=== PATIENT | female | born 1935 | race Caucasian/White ===

== ENCOUNTER → 2023-08-21 14:55 | Outpatient (REF) | payer MEDICARE, SELFPAY ==
[2023-08-21 19:20] LABS: % Basophils 0.6 % (0-2); % Eosinophils 3.1 % (0-6); % Immature Granulocytes 0.2 % (0-0.5); % Lymphocytes 15.1 % (20.5-51.1); Absolute Eosinophils 0.2 10^3/uL (0-0.7); Absolute Lymphocytes 0.8 10^3/uL (1.2-3.4); Absolute Monocytes 0.5 10^3/uL (0.1-0.6); Absolute Neutrophils 3.7 10^3/uL (1.4-6.5); Hematocrit 34.5 % (37.0-47.0); Hemoglobin 10.9 g/dL (12.0-16.0); Mean Corp Hgb Conc. 31.6 g/dL (33.0-37.0); Mean Corpuscular Hgb 32.2 pg (27.0-31.0); Mean Corpuscular Volume 102.1 fL (81.0-99.0); Mean Platelet Volume 9.7 fL (7.4-10.4); Nucleated Red Blood Cells % 0 %; Platelet Count 180 10^3/uL (130-400); Red Blood Cell Count 3.38 10^6/uL (4.20-5.40); Red Cell Dist. Width 13.6 % (11.5-14.5); White Blood Cell Count 5.2 10^3/uL (4.8-10.8)
[2023-08-21 19:29] LABS: Blood Urea Nitrogen 18 mg/dl (7-17); Calcium 9.4 mg/dl (8.4-10.2); Carbon Dioxide 30 mmol/L (22-30); Chloride 100 mmol/L (98-107); Glucose 89 mg/dl (70-99); Sodium 139 mmol/L (135-145); eGFR 48.94
== END ==
LOC: CLAB 14:55
PROVIDERS: ATTENDING PHYSICIAN Internal Medicine Cardiovascular Disease; FAMILY PHYSICIAN Internal Medicine; OTHER PHYSICIAN Internal Medicine Cardiovascular Disease
DX: I50.9 Heart failure, unspecified (principal)
CPT/HCPCS: 36415; 80048; 85025

== ENCOUNTER → 2023-08-23 13:28 | Outpatient (REF) | payer MEDICARE, SELFPAY | LOC: RAD 13:28 | PROVIDERS: ATTENDING PHYSICIAN Nurse Practitioner Family | DX: M54.50 Low back pain, unspecified (principal) | CPT/HCPCS: 72110 ==

== ENCOUNTER → 2023-09-16 07:10 | Outpatient (REF) | payer MEDICARE, SELFPAY | LOC: RAD 07:10 | PROVIDERS: ATTENDING PHYSICIAN Internal Medicine | DX: I60.9 Nontraumatic subarachnoid hemorrhage, unspecified (principal) | CPT/HCPCS: 70450 ==

== ENCOUNTER → 2023-09-27 15:44 | Outpatient (REF) | payer MEDICARE, SELFPAY | LOC: RAD 15:44 | PROVIDERS: ATTENDING PHYSICIAN Internal Medicine | DX: M79.602 Pain in left arm (principal) | CPT/HCPCS: 73060 ==

== ENCOUNTER → 2023-10-18 15:50 | Outpatient (REF) | payer MEDICARE, SELFPAY | LOC: RAD 15:50 | PROVIDERS: ATTENDING PHYSICIAN Internal Medicine | DX: E04.1 Nontoxic single thyroid nodule (principal) | CPT/HCPCS: 76536 ==

== ENCOUNTER 2023-12-30 15:23 | Emergency (ER) | payer MEDICARE, SELFPAY ==
[2023-12-30 15:31] VITALS: BP 142/73
--- NOTE | 2023-12-30 17:26 | ED.GENMED ---
History of Present Illness
General
Chief Complaint: Head Injury
Source: patient and family
Time Seen by Provider: 12/30/23 17:17
History of Present Illness
History of Present Illness:
88-year-old female was walking with her walker while trying to carry a cup of water. She states that she suspects that she was not able to lift the walker and it caught on the edge of the threshold. She then fell down and suspect she hit the top
of her head on a door jam. Patient did not even realize she hit her head to later small hematoma on the top of her head. She called her PCP who advised her to come the emergency department. Patient denies any symptoms. No headache or vision
change. No motor weakness.
Past History
Past History
ED Past Medical History: Arrthythmia (Atrial fibrillation), CAD, CHF, COPD, CVA (Right sided weakness), GERD (Fink's esophagus, hiatal hernia), HTN, Hypercholesterolemia, Valvular disease (aortic stenosis, rheumatic heart disease) and Other
(Chronic UTI, renal cyst, Vertigo, PE, Sleep apnea, Rheumatic heart disease, Diverticulitis,Hiatal hernia, IBS, Ulcers, UTi, )
ED Past Surgical History: Cholecystectomy, Orthopedic (Left knee, Left shoulder surgery) and Tonsilectomy
Social History
Tobacco: Non-smoker
Alcohol: None
Drug: None
Personal:
Living: with family
Employment: Retired
Family History
Family History: Other (Stroke and cancer)
Phy Exam
Physical Exam
Physical Exam:
CONSTITUTIONAL Patient alert and oriented to person, place and time. Well-appearing. Vital signs reviewed.
HEAD small hematoma to the top of the skin
EYES eyelids normal to inspection, Extraocular muscles intact, Conjunctiva normal, Sclera normal.
NECK normal range of motion, Trachea midline, no jugular venous distention.
RESPIRATORY CHEST No respiratory distress noted, Chest expansion equal
BACK normal inspection, kyphotic, no midline tenderness
UPPER EXTREMITY range of motion normal, Motor strength normal, no cyanosis, no edema.
LOWER EXTREMITY range of motion normal, Motor strength normal, no cyanosis, no edema.
NEURO Speech normal, No focal motor deficits, Bina coma scale 15, Memory normal, Cranial Nerves intact to screening exam. No pronator drift
SKIN skin warm, dry, and normal in color.
PSYCHIATRIC patient oriented to person place and time, Normal affect.
Course
Orders/Labs/Results
Orders:
Orders
12/30/23 15:38
CT Head W/o Iv Contrast Urgent
Comment:
Reason For Exam: head injury on Eliquis
Vital Signs
Initial and Last Documented VS:
Initial Vital Signs
Temp Pulse Resp BP Pulse Ox
98.4 F 71 16 142/73 97
12/30/23 15:31 12/30/23 15:31 12/30/23 15:31 12/30/23 15:31 12/30/23 15:31
Last Documented Vital Signs
Temp Pulse Resp BP Pulse Ox
98.4 F 71 16 142/73 97
12/30/23 15:31 12/30/23 15:31 12/30/23 15:31 12/30/23 15:31 12/30/23 15:31
MDM/Problems Addressed
MDM/Problems Addressed:
Head injury
*Radiology
Radiology exam reviewed: radiology read reviewed
*Pulse Oximetry
Patient hypoxic: no
*Critical Care Note
Total Time (30-74mins, 75-104mins- exclusive of procedures): Not Applicable
Data Reviewed
Source: patient and family
Prescriptions/Medications Considered But Not Given:
Considered Kcentra but no evidence of intracranial hemorrhage
Patient Management
Escalation/DeEscalation of care consider admission/obs:
Normal exam. CT negative. Okay for discharge
ED Attending Note
-
Portions of this chart may have been created with voice recognition software.� Occasional wrong word or��sound alike� substitutions may have occurred due to the inherent limitations of voice recognition software.
Discharge Plan
Departure
Patient Disposition: Home (Routine Discharge)
Date of Disposition: 12/30/23
Time of Disposition: 17:27
Patient with high blood pressure during this ER visit?: Yes
Discharge Problem:
Head injury
Instructions: Head Injury in Adults (DC), Contusion (DC), BLOOD PRESSURE
Prescriptions:
No Action
Eliquis 2.5 MG tablet
2.5 mg PO BID 0RF
L.acidoph, paracasei,B. lactis 1 EACH capsule
1 ea PO DAILY@1200
cholecalciferol (vitamin D3) 50 MCG tablet,chewable
2,000 unit PO DAILY@1200
carvedilol 6.25 mg Tablet
6.25 mg PO BID Qty: 60 0RF
cephalexin 250 mg Capsule
250 mg PO QPM 30 Days Qty: 30 0RF
acetaminophen 500 mg Tablet
1,000 mg PO Q6H PRN (Reason: pain)
potassium chloride 10 mEq Tablet,Er Particles/Crystals
10 meq PO DAILY 30 Days Qty: 30 0RF
Entresto 24-26 mg Tablet
1 tab PO BID 30 Days Qty: 60 0RF
furosemide [Lasix] 40 mg tablet
40 mg PO DAILY Qty: 30 0RF
atorvastatin 10 mg Tablet
10 mg PO QPM 30 Days Qty: 30 0RF
amiodarone [Pacerone] 200 mg tablet
200 mg PO QPM
famotidine 10 mg Tablet
10 mg PO HS
diclofenac sodium 0.1 % Drops
1 drp OPHTHALMIC (EYE) BID
prednisolone acetate (PF) 1 % Drops,Suspension
1 drp OPHTHALMIC (EYE) BID
Activity Restrictions/Additional Instructions:
Return immediately for changes in mentation, weakness any kind, vision changes, vomiting, headache or any other concerns.
Interventions
Interventions:
*ED COVID-19 Vaccine History Last Done: 12/30/23 15:31
Discharge Date and Time
Print Language: CAMEROONIAN
[2023-12-30 17:46] VITALS: BP 138/60
== END 2023-12-30 17:56 | disposition home or self-care (01) ==
LOC: EMR 15:23
PROVIDERS: EMERGENCY PHYSICIAN Emergency Medicine; FAMILY PHYSICIAN Internal Medicine
DX: S09.90XA Unspecified injury of head, initial encounter (principal); W19.XXXA Unspecified fall, initial encounter; Y93.01 Activity, walking, marching and hiking; I48.91 Unspecified atrial fibrillation; I25.10 Atherosclerotic heart disease of native coronary artery without angina pectoris; I11.0 Hypertensive heart disease with heart failure; I50.9 Heart failure, unspecified; K21.9 Gastro-esophageal reflux disease without esophagitis; E78.00 Pure hypercholesterolemia, unspecified; G47.30 Sleep apnea, unspecified; J44.9 Chronic obstructive pulmonary disease, unspecified; K58.9 Irritable bowel syndrome, unspecified; Z79.01 Long term (current) use of anticoagulants; Z82.3 Family history of stroke; Z86.73 Personal history of transient ischemic attack (TIA), and cerebral infarction without residual deficits; Z87.19 Personal history of other diseases of the digestive system; Z87.440 Personal history of urinary (tract) infections; Z90.49 Acquired absence of other specified parts of digestive tract
CPT/HCPCS: 99284; 70450

== ENCOUNTER 2024-05-04 13:47 | Inpatient (IN) | payer MEDICARE, SELFPAY ==
[2024-05-02 21:50] VITALS: BP 140/66
[2024-05-02 21:59] VITALS: BP 140/62; BMI 23.3
--- NOTE | 2024-05-02 22:28 | ED.GENMED ---
History of Present Illness
<Liz Baez MD, Resident - Last Filed: 05/03/24 02:03>
General
Chief Complaint: Dizziness
Source: patient
Exam Limitations: none
Time Seen by Provider: 05/02/24 21:55
Nursing documentation reviewed up to this point in time: agreed with
Travel History
Have you traveled to any high risk areas for coronavirus over the past 14 days?: No
Have you had any contact with someone who has COVID-19?: No
Do you have any symptoms of coronavirus? Fever > 100 degrees, chills, cough, shortness of breath, sore throat, loss of taste or smell, muscle aches, or headache?: No
History of Present Illness
History of Present Illness:
88-year-old female with PMHx significant for cardiomyopathy, rheumatic heart disease, aortic stenosis, PE, A-fib, s/p pacemaker placement, diverticulosis, CVA presents to the hospital for evaluation of sensation of falling. Patient states that she
drank tea, went into the room and then started feeling heavy in her head, and that sensation radiated down into her neck bilaterally into her supraclavicular area and then she had a sensation of passing out. She could not differentiate if it is a
sensation of things spinning around her and the room but states that turning her head or standing up from the chair makes her more dizzy. She has a sensation of palpitations and chest heaviness but could not associated with her dizziness. She
answers with - 'I do not know' if her chest symptoms and dizziness occurs together, but is oriented to person place and time. She had 2 similar episodes in the last 4 weeks, was taken to primary care, who referred her to vestibular therapy.
Patient has a vestibular therapy appointment scheduled for next week. She is weak in her right lower extremity from her previous stroke but denies having any other focal weakness, change in sensations, chest pain, SOB, orthopnea, PND, bowel and
bladder incontinence, loss of consciousness, or recent falls. Patient ambulates with walker at home, and denies falling recently. Patient is on Eliquis 2.5 mg twice daily and did not miss taking any Eliquis dosing.
If applicable-neuro sx onset
Onset of symptoms known: No
Time pt last seen normal is known: No
Past History
<Liz Baez MD, Resident - Last Filed: 05/03/24 02:03>
Past History
ED Past Medical History: Arrthythmia (Atrial fibrillation), CAD, CHF, COPD, CVA (Right sided weakness), GERD (Fink's esophagus, hiatal hernia), HTN, Hypercholesterolemia, Valvular disease (aortic stenosis, rheumatic heart disease) and Other
(Chronic UTI, renal cyst, Vertigo, PE, Sleep apnea, Rheumatic heart disease, Diverticulitis,Hiatal hernia, IBS, Ulcers, UTi, )
ED Past Surgical History: Cholecystectomy, Orthopedic (Left knee, Left shoulder surgery) and Tonsilectomy
Social History
Tobacco: Non-smoker
Alcohol: None
Drug: None
Personal:
Living: with family
Employment: Retired
Family History
Family History: Other (Stroke and cancer)
Review of Systems
<Liz Baez MD, Resident - Last Filed: 05/03/24 02:03>
Review of Systems
Allergies reviewed?: No
Other source history: family
Constitutional: Reports fever
EENT: Reports no symptoms
Respiratory: Reports no symptoms
Cardiac: Reports chest pain and palpitations
ABD/GI: Reports no symptoms
: Reports no symptoms
Musculoskeletal: Reports edema
Skin: Reports other (bruises)
Neurological: Reports dizzy and headache
Hematologic/Lymphatic: Reports no symptoms
Psychiatric: Reports no symptoms
Phy Exam
<Liz Baez MD, Resident - Last Filed: 05/03/24 02:03>
General Physical Exam
General Presentation: well appearing and no apparent distress
General Skin: warm
General Habitus: elderly
General Mental: alert
General Hydration: appears well hydrated
ENT Exam
ENT Exam: EOMI and TM's normal
Cardiovascular Exam
Cardiovascular Exam: regular rate/rhythm, no gallop, no murmur and normal peripheral pulses (left >right, 2 + dorsalis pedis, equal radial pulses)
Systolic Murmur: 3/6
Heart Sounds: distant
SALLY Score
Is patient's age greater than or equal to 65 years: Yes
Does patient have 3 or more CAD risk factors?: Yes
Does patient have known CAD: No
Has patient used ASA in past seven days?: No
Has patient had severe angina in past 24 hrs?: No
Pulmonary Exam
Pulmonary Exam: lungs clear, no respiratory distress, no rales, no crackles and no rhonchi
Gastrointestinal Exam
Gastrointestinal Exam: normal bowel sounds, non tender, soft, no pulsatile mass and non distended
Neurological Exam
Neurological Exam: alert, oriented x3, CN II-XII intact, speech normal and cerebellum intact
NIH Stroke Score
Level of Consciousness: 0 - Alert
LOC questions: 0-Answers both correctly
LOC Commands: 0-Performs both correctly
Best Gaze: 0-Normal
Visual Garcia: 0=Normal, no visual loss
Facial palsy: 0=Normal, symmetrical
Motor - Right Arm: 0=No drift 10 seconds
Motor - Left Arm: 0=No drift 10 seconds
Motor - Right Le-No drift 5 seconds
Motor - Left Le-No drift 5 seconds
Limb Ataxia: 0-Absent
Sensation: 0-Normal
Best Language: 0-No aphasia
Dysarthria: 0-Normal
Extinction and Inattention: 0-No abnormality
Total Score:: 0
Motor
Seizure Activity: none
Gait: other (Not tested.)
Tremors: senile
Other Movement Disorders: none
Right upper extremity: 5
Right lower extremity: 4
Left upper extremity: 5
Left lower extremity: 5
Sensory
Sensory Exam: intact
Cerebellar
Cerebellar Function: normal finger to nose and normal heel to dan
Reflexes
Reflexes: +2: Left patellar and +2: Right patellar
Babinski: normal: Bilateral
Musculoskeletal Exam
Musculoskeletal Exam: edema (1+ pitting edema) and other (ROM limited in b/l hips)
Skin Exam
Skin Exam: other (surface bruising secondary to eliquis)
<Lili Green, DO - Last Filed: 05/03/24 01:07>
NIH Stroke Score
Total Score:: 0
Course
<Liz Baez MD, Resident - Last Filed: 05/03/24 02:03>
Orders/Labs/Results
Orders:
Orders
05/02/24 22:53
Electrocardiogram (*1) Urgent
Reason for Study: Vertigo / Dizzy
EKG- Treatment ONCE
05/02/24 22:54
Meclizine [Antivert] 25 mg PO NOW STA
05/02/24 23:07
Complete Blood Count/With Diff Urgent
Comprehensive Metabolic Panel Urgent
NT-proBNP Urgent
Troponin I Urgent
05/03/24 00:00
CT Head W/o Iv Contrast Urgent
Reason For Exam: severe dizziness
05/03/24 01:09
Meclizine [Antivert] 25 mg PO NOW STA
Abnormal Lab Results
05/02/24
23:07
WBC 3.8 L 10^3/uL
(4.8-10.8)
RBC 3.35 L 10^6/uL
(4.20-5.40)
Hgb 10.9 L g/dL
(12.0-16.0)
Hct 33.1 L %
(37.0-47.0)
MCH 32.5 H pg
(27.0-31.0)
MCHC 32.9 L g/dL
(33.0-37.0)
Absolute Lymphs (auto) 1.0 L 10^3/uL
(1.2-3.4)
Monocytes % 13.0 H %
(1.7-9.3)
BUN 24 H mg/dl
(7-17)
Creatinine 1.4 H mg/dL
(0.6-1.0)
Glucose 124 H mg/dl
(70-99)
Total Protein 6.2 L g/dl
(6.3-8.2)
05/02/24 23:07
05/02/24 23:07
Vital Signs
Initial and Last Documented VS:
Initial Vital Signs
Pulse Resp BP Pulse Ox
78 24 140/66 100
05/02/24 21:50 05/02/24 21:50 05/02/24 21:50 05/02/24 21:50
Last Documented Vital Signs
Temp Pulse Resp BP Pulse Ox
96.8 F L 83 16 118/56 98
05/02/24 21:59 05/03/24 00:30 05/03/24 00:30 05/03/24 00:00 05/03/24 00:15
<Lili Green, DO - Last Filed: 05/03/24 01:07>
Orders/Labs/Results
Orders:
Orders
05/02/24 22:53
Electrocardiogram (*1) Urgent
Reason for Study: Vertigo / Dizzy
EKG- Treatment ONCE
05/02/24 22:54
Meclizine [Antivert] 25 mg PO NOW STA
05/02/24 23:07
Complete Blood Count/With Diff Urgent
Comprehensive Metabolic Panel Urgent
NT-proBNP Urgent
Troponin I Urgent
05/03/24 00:00
CT Head W/o Iv Contrast Urgent
Reason For Exam: severe dizziness
05/03/24 01:09
Meclizine [Antivert] 25 mg PO NOW STA
Abnormal Lab Results
05/02/24
23:07
WBC 3.8 L 10^3/uL
(4.8-10.8)
RBC 3.35 L 10^6/uL
(4.20-5.40)
Hgb 10.9 L g/dL
(12.0-16.0)
Hct 33.1 L %
(37.0-47.0)
MCH 32.5 H pg
(27.0-31.0)
MCHC 32.9 L g/dL
(33.0-37.0)
Absolute Lymphs (auto) 1.0 L 10^3/uL
(1.2-3.4)
Monocytes % 13.0 H %
(1.7-9.3)
BUN 24 H mg/dl
(7-17)
Creatinine 1.4 H mg/dL
(0.6-1.0)
Glucose 124 H mg/dl
(70-99)
Total Protein 6.2 L g/dl
(6.3-8.2)
05/02/24 23:07
05/02/24 23:07
Vital Signs
Initial and Last Documented VS:
Initial Vital Signs
Pulse Resp BP Pulse Ox
78 24 140/66 100
05/02/24 21:50 05/02/24 21:50 05/02/24 21:50 05/02/24 21:50
Last Documented Vital Signs
Temp Pulse Resp BP Pulse Ox
96.8 F L 83 16 118/56 98
05/02/24 21:59 05/03/24 00:30 05/03/24 00:30 05/03/24 00:00 05/03/24 00:15
<Liz Baez MD, Resident - Last Filed: 05/03/24 02:03>
MDM/Problems Addressed
Differential Diagnosis Includes:
BPPV, vertebrobasilar insufficiency, carotid stenosis, acute CVA, acute hemorrhage.
MDM/Problems Addressed:
CT head negative.
Antivert x 2-did not improve symptoms for the patient.
Intractable vertigo.
<Liz Baez MD, Resident - Last Filed: 05/03/24 02:03>
*Radiology
Radiology exam reviewed: preliminary read by ED provider and radiology read reviewed
*Pulse Oximetry
Patient hypoxic: no
*EKG
Interpreted by ED Provider?: Yes
EKG Intrepretation Date: 05/02/24
EKG Intrepretation Time: 22:53
Interpretation: abnormal
Comparison EKG: changes noted
Rate: normal
Rhythm: PVC's
[place]: indeterminate
QRS Pattern: right bundle branch block and other (Wide QRS complexes)
*[employer] Interpretation
Rate: normal
Interpretation: normal
Rhythm: ventricular paced
*Critical Care Note
Total Time (30-74mins, 75-104mins- exclusive of procedures): Not Applicable
<Liz Baez MD, Resident - Last Filed: 05/03/24 02:03>
Update Note
Update Note:
Patient continues to have vertigo, failed get up and go test after 2 doses of Antivert.
Plan to admit patient.
ED Attending Note
<Liz Baez MD, Resident - Last Filed: 05/03/24 02:03>
-
Portions of this chart may have been created with voice recognition software.� Occasional wrong word or��sound alike� substitutions may have occurred due to the inherent limitations of voice recognition software.
<Lili Green DO - Last Filed: 05/03/24 01:07>
ED Attending Note
Patient seen and examined by attending physician: Yes
I performed a history and physical exam of patient and discussed management with resident, I reviewed resident's note and agree with documented findings and plan of care.: Yes
ED Attending Note:
This is an 88-year-old woman who has history of A-fib, chronically maintained on Eliquis, history of aortic stenosis, mitral regurgitation, CHF, CVA, pacemaker.
She complains of intermittent positional dizziness that began 4 weeks ago. Dizziness is worse with rotation of her head and much worse when lying down supine. Accompanied with nausea without vomiting. Sporadic episodes over the past 4 weeks and
has been evaluated by her PCP, was ordered to start physical therapy/vestibular training with initial appointment scheduled for next week.
She complains of abrupt onset of dizziness that began tonight, much worse than previous sporadic episodes throughout the month. She does admit to a sense of some pressure in her head but no nasal congestion, no fever, she has not had a fall, no
lightheadedness. She has had sporadic chest discomfort, not associated with intermittent dizziness. She denies shortness of breath nor cough. No change in weight, no leg pain or swelling.
88-year-old woman appears her stated age, sitting upright on stretcher, resistant to change position but otherwise appears in no acute distress.
HEENT: Pupils are equal reactive, extraocular muscles intact. No nystagmus. Test of skew is negative. Patient poorly cooperative with head impulse testing with significant dizziness with minimal rotation of head bilaterally.
Overall appears euvolemic.
Heart is regular rate and rhythm.
Lungs are clear to auscultation. No respiratory distress.
Concern for peripheral positional vertigo versus central vertigo/vertebrobasilar insufficiency. Less likely arrhythmia, orthostasis.
She has had sporadic chest pain which does not appear to be associated with her dizziness and without accompanying shortness of breath. She does have history of aortic stenosis, must consider progression of /symptomatic . Concern for ACS.
Will check labs, CT of the head, EKG. Continue registered nurse cardiac telemetry.
Will trial a dose of meclizine.
05/03/2024 0104 AM
EKG shows ventricular paced rhythm.
Labs show very mild neutropenia, mild anemia, overall similar and unchanged from previous.
Mildly elevated creatinine, similar to previous. BNP is elevated at 2300 but overall similar and unchanged from previous.
Troponin is negative.
CT of the head shows no acute findings, similar and unchanged from previous December of this year.
Thus far perhaps minimal improvement in positional vertigo after 1 dose of Antivert. Will trial another dose and continue to observe. If significant vertigo persists patient will require acute hospitalization, concern for posterior circulation
stroke.
Discharge Plan
Departure
Patient Disposition: Admit
Date of Disposition: 05/03/24
Time of Disposition: 02:01
Admit to doctor: Rubina Hurd MD
Presentation/result/management discussed w/ accepting MD/DO: Hospitalist
Discharge Problem:
intractable vertigo
Prescriptions:
No Action
Eliquis 2.5 MG tablet
2.5 mg PO BID 0RF
L.acidoph, paracasei,B. lactis 1 EACH capsule
1 ea PO DAILY@1200
cholecalciferol (vitamin D3) 50 MCG tablet,chewable
2,000 unit PO DAILY@1200
cephalexin 250 mg Capsule
250 mg PO QPM 30 Days Qty: 30 0RF
acetaminophen 500 mg Tablet
1,000 mg PO Q6H PRN (Reason: pain)
potassium chloride 10 mEq Tablet,Er Particles/Crystals
10 meq PO DAILY 30 Days Qty: 30 0RF
Entresto 24-26 mg Tablet
1 tab PO BID 30 Days Qty: 60 0RF
furosemide [Lasix] 40 mg tablet
40 mg PO DAILY Qty: 30 0RF
atorvastatin 10 mg Tablet
10 mg PO QPM 30 Days Qty: 30 0RF
amiodarone [Pacerone] 200 mg tablet
100 mg PO QPM
famotidine 10 mg Tablet
10 mg PO HS
omeprazole 20 mg Capsule,Delayed Release(Dr/Ec)
20 mg PO QPM PRN (Reason: upset stomach)
carvedilol 6.25 mg tablet
3.125 mg PO BID
Referrals:
Moises Ventura DO [Family Provider] -
Interventions
Interventions:
*Risk Screen - Suicide Last Done: 05/02/24 21:50
*General Assessment Last Done: 05/02/24 22:17
*Neglect/Abuse Screening Last Done: 05/02/24 21:50
ED- Fall Risk Assessment Last Done: 05/02/24 22:17
*ED COVID-19 Vaccine History Last Done: 05/02/24 22:17
ED- Neurological Assessment Last Done: 05/02/24 22:17
ED- Cardiac Assessment Last Done: 05/02/24 22:17
ED Swallowing Screen Last Done: 05/02/24 23:10
Discharge Date and Time
Print Language: MACEDONIAN
[2024-05-02 22:32] VITALS: BP 114/62
[2024-05-02 23:00] VITALS: BP 128/56
[2024-05-02] MEDS: ANTIVERT 25 MG PO (23:16)
[2024-05-02 23:17] LABS: % Basophils 0.8 % (0-2); % Eosinophils 2.1 % (0-6); % Immature Granulocytes 0.3 % (0-0.5); % Lymphocytes 25.7 % (20.5-51.1); % Neutrophils 58.1 % (42.2-75.2); Absolute Eosinophils 0.1 10^3/uL (0-0.7); Absolute Monocytes 0.5 10^3/uL (0.1-0.6); Absolute Neutrophils 2.2 10^3/uL (1.4-6.5); Hematocrit 33.1 % (37.0-47.0); Hemoglobin 10.9 g/dL (12.0-16.0); Mean Corp Hgb Conc. 32.9 g/dL (33.0-37.0); Mean Corpuscular Hgb 32.5 pg (27.0-31.0); Mean Corpuscular Volume 98.8 fL (81.0-99.0); Mean Platelet Volume 8.6 fL (7.4-10.4); Nucleated Red Blood Cells % 0 %; Platelet Count 146 10^3/uL (130-400); Red Blood Cell Count 3.35 10^6/uL (4.20-5.40); Red Cell Dist. Width 12.9 % (11.5-14.5); White Blood Cell Count 3.8 10^3/uL (4.8-10.8)
[2024-05-02 23:34] LABS: ALT (SGPT) 16 U/L (0-35); AST (SGOT) 30 U/L (14-36); Albumin 3.8 g/dl (3.5-5.0); Alkaline Phosphatase 108 U/L (38-126); Blood Urea Nitrogen 24 mg/dl (7-17); Calcium 9.3 mg/dl (8.4-10.2); Carbon Dioxide 29 mmol/L (22-30); Chloride 103 mmol/L (98-107); Estimated Creatinine Clearance 19 ml/min; Glucose 124 mg/dl (70-99); Potassium 3.9 mmol/L (3.5-5.1); Sodium 139 mmol/L (135-145); Total Bilirubin 0.4 mg/dl (0.2-1.3); Total Protein 6.2 g/dl (6.3-8.2); eGFR 36.41
[2024-05-02 23:40] LABS: NT-proBNP 2330 pg/ml; Troponin I 0.015 ng/ml
[2024-05-03] VITALS (14 sets, daily range): BP systolic 89–133; BP diastolic 47–71; PULSE 72–79; BMI 28.0
[2024-05-03] MEDS: ANTIVERT 25 MG PO (01:36)
--- NOTE | 2024-05-03 02:30 | HPS.HSE ---
Family Physician
-
Family Physician: Moises Ventura
Chief Complaint
-
Dizziness
History of Present Illness
88-year-old female was past medical history of cardiomyopathy, depressed EF of around 30%, rheumatic mitral valve disease, aortic stenosis, permanent atrial fibrillation status post pacemaker, CVA, chronic subdural hemorrhage coming into the
emergency department for complaints of ongoing dizziness that appeared persistent today.
Patient reports that symptoms began about a month ago. She was having vaginal symptoms and was actually seen by her PMD. She was referred to vestibular testing which is pending in about 1-1/2 weeks. She seemed to have intermittent episodes and
having. Is that she is symptom-free. She states this is associated with weakness but she has been ambulating well with her walker. Today she reports arose all usual state of health without symptoms. Then in the evening after having some tea and
going to rest she woke up with some neck discomfort and then dizziness. She reported dizziness 2 times of sensations. She perceives attempts to keep moving even though she is not moving. She also reports feeling like she is going to pass out and
that her head is AV. She reports that the sensation is triggered when she extends her neck. It is also triggered when she rotates her head to either side but much more towards the left side. She denies double vision or blurry vision with these
episodes. She denies and vomiting. But she does have nausea with the episode. She reports having nausea at the moment. She denies any chest pain or shortness of breath. She reports some palpitations. She denies any actual syncopal episodes or
recent falls.
Patient has no recent episodes of diarrhea, melena, hematochezia, vomiting or loss of appetite. Family reports has been tolerating p.o. very well. Has been no acute changes in the medications. She has no recent cough fevers or chills. She denies
any urinary symptoms
In the emergency department the patient was afebrile with a temp of 96.8, blood pressure was 120/56 and she was satting 98%. ECG showed a paced rhythm at [address] No acute ST changes.
The head CT shows no acute findings. CBC was stable and no change from prior. Chemistries showed no acute abnormalities with a BUN of 24 and creatinine of 1.4.
Patient was given 2 doses of meclizine in the ED but ultimately she still remains symptomatic.
Medical History
Past Medical History
Past Medical History: Reports Arrhythmia (Pulmonary atrial fibrillation status post pacemaker placement, paced rhythm), CHF (Cardiomyopathy, EF 30%), COPD, CVA and Valvular Disease (Aortic stenosis, mitral regurgitation)
Past Surgical History: Reports Cholecystectomy and Orthopedic
Social History
Tobacco: Non-smoker
Alcohol: None
Drug: None
Personal: Single
Living: With Family
Employment: Retired
Family History
Family History: Not pertinent
Allergies / Home Medications
Allergies reflects when Allergies were last updated in [facility].
Home Medications with original date entered in [facility]
Allergy/Medication List:
Allergies
Allergy/AdvReac Type Severity Reaction Status Date / Time
adhesive tape Allergy skin tears Verified 05/02/24 21:54
azithromycin [From Zithromax] Allergy Severe Verified 05/02/24 21:54
Nausea
levofloxacin [From Levaquin] Allergy Severe Verified 05/02/24 21:54
Nausea
oxycodone Allergy Hallucinati Verified 05/02/24 21:54
ons
Home Medications
apixaban 2.5 mg tablet (Eliquis) 2.5 mg PO BID 10/18/17
L.acidoph, paracasei,B. lactis 10 billion cell capsule 1 ea PO DAILY@1200 Supplement 11/10/17
cholecalciferol (vitamin D3) 50 mcg (2,000 unit) chewable tablet 2,000 unit PO DAILY@1200 Supplement 12/17/19
cephalexin 250 mg capsule 250 mg PO QPM 30 days #30 caps 01/27/22
acetaminophen 500 mg tablet 1,000 mg PO Q6H PRN pain 02/26/22
atorvastatin 10 mg tablet 10 mg PO QPM High cholesterol 30 days #30 tabs 03/09/22
furosemide 40 mg tablet (Lasix) 40 mg PO DAILY #30 tabs 03/09/22
potassium chloride 10 mEq tablet,extended release(part/cryst) 10 meq PO DAILY 30 days #30 tabs 03/09/22
sacubitril 24 mg-valsartan 26 mg tablet (Entresto) 1 tab PO BID 30 days #60 tabs 03/09/22
amiodarone 200 mg tablet (Pacerone) 100 mg PO QPM 01/24/23
famotidine 10 mg tablet 10 mg PO HS 01/24/23
carvedilol 6.25 mg tablet 3.125 mg PO BID heart rate 05/02/24
omeprazole 20 mg capsule,delayed release 20 mg PO QPM PRN upset stomach 05/02/24
Review of Systems
-
History Source: Patient
Constitutional: Reports No Symptoms
EENT: Reports No Symptoms
Respiratory: Reports No Symptoms
Cardiac: Reports No Symptoms
Abdomen/GI: Reports No Symptoms
: Reports No Symptoms
Musculoskeletal: Reports No Symptoms
Skin: Reports No Symptoms
Neurological: Reports Dizzy and Weakness
Endocrine: Reports No Symptoms
Hematologic/Lymphatic: Reports No Symptoms
Psych: Reports No Symptoms
Physical Exam
Vital Signs
Vital Signs
Temp Pulse Resp BP Pulse Ox
96.8 F L 83 16 118/56 98
05/02/24 21:59 05/03/24 00:30 05/03/24 00:30 05/03/24 00:00 05/03/24 00:15
Physical Exam
General: Well Nourished and Good Appetite
HEENT: NormoCephalic, Anicteric, Moist mucous membranes, Atraumatic, PERRLA, [place] Conjunctivae, No Ptosis and Neck Nontender
Respiratory: Clear
Cardiac: S1/S2, Regular Rhythm and Murmur (systolic 3/4 at rusb)
Breast: Deferred by me
GI: Soft and Normal Bowel Sounds
Rectal: Deferred by Provider
Genito-urinary: Deferred by me
Musculoskeletal: No Clubbing, No Cyanosis and No Edema
Skin: Warm
Neuro: AO x 3 and Nonfocal/grossly intact
Hematologic/Lymphatic: No Lymphadenopathy
Psych: Calm
Laboratory Results
-
05/02/24 23:07
05/02/24 23:07
Laboratory Results
Total Bilirubin 0.4 mg/dl (0.2-1.3) 05/02/24 23:07
AST 30 U/L (14-36) 05/02/24 23:07
ALT 16 U/L (0-35) 05/02/24 23:07
Alkaline Phosphatase 108 U/L (38-126) 05/02/24 23:07
Troponin I 0.015 ng/ml 05/02/24 23:07
Data Reviewed
-
CT Scan: Report Reviewed by me
Medical Tests (Nuc Med, Echo, EKG etc): Image Personally Visualized and interpreted
Lab Data: Labs Reviewed by me
Old Records: Reviewed
Impression/Plan
-
IMPRESSION:
88 female with , MR, cardiomyopathy, HFrEF - EF 30%, CVA, A fib on Eliquis, chronic subdural/ subarachnoid hemorrhage comes in with subacute dizziness episodes for a month but appeared to have a more persistent episode since dinner. Reports dizzy
with turning head (worse towards left) horizontal or neck extension or standing. Describes the sensation as feeling she would pass out. No trauma. Denies chest pain, sob. Intermittent palpitations. No signs of acute infection. Could not
ambulate due to the persistent symptom when trying to move despite meclizine x 2. No tinnitus. Chronic moderate hearing loss. Exam shows no focal neurological deficit. Was not able to elicit nystagmus on horizontal or vertical saccades. CT head
unremarkable. ECG, cbc, lytes, bun, cr unchanged from prior with paced rhythm.
PLAN:
1. Dizziness - Related to head position changes horizontally and with neck extension and so c/w vertigo though patient was vague regarding spinning sensation, she reports more head heaviness or feeling she is going to faint. Unlikely this
positional changes are sufficient for hemodynamic changes.
- admit to telemetry given risk factors
- trop has been negative, no further trending
- interrogating PPM, had symptoms while tele was showing normal paced rhythm
- BP stable and likely cannot tolerate orthostatic vs but will try
- no signs of active infection
- cannot get mri/mra due to PPM dependence. Possibly vascular insufficiency but avoiding contrast due to low GFR unles neuro recommends
- prn meclizine
- neurology consult
2. AFIb s/p PPM - Paced rhythm at 70, no abnormalities on ppm interrogation.
- continue amio 100, carvedilol 3.125
- continue qliauis 2.5 bid
3. CHF EF 30% - euvolemic. No sigsn of dehydration
- orthostatic vs
- continue entresto, carvedilol lasix
[2024-05-03 07:06] LABS: Blood Urea Nitrogen 22 mg/dl (7-17); Calcium 9.4 mg/dl (8.4-10.2); Carbon Dioxide 31 mmol/L (22-30); Chloride 104 mmol/L (98-107); Estimated Creatinine Clearance 18 ml/min; Glucose 87 mg/dl (70-99); Magnesium 2.5 mg/dl (1.6-2.3); Potassium 4.1 mmol/L (3.5-5.1); Sodium 141 mmol/L (135-145)
[2024-05-03] MEDS: ENTRESTO 24 MG/26 MG 1 TAB PO (07:28)
[2024-05-03] MEDS: COREG 3.125 MG PO ×2 (07:29→23:40)
[2024-05-03] MEDS: ELIQUIS 2.5 MG PO ×2 (07:29→23:02)
[2024-05-03] MEDS: KCL 10 MEQ PO (07:30)
[2024-05-03] MEDS: LASIX 40 MG PO (07:30)
--- NOTE | 2024-05-03 08:05 | CON.NEURO ---
Neuro Assessment/Plan
Assessment
Abrupt recurrence of dizziness
With reported history of dizziness in 2011 and 2012 (potentially earlier)
Differential diagnosis includes orthostatic hypotension even though not clearly demonstrated by initial testing, BPPV
Old right occipital infarct
Plan
continue to follow orthostatics with 3 minute increments in-between timing
Check blood work for metabolic abnormalities
Initiate iron replacement
Initiate vitamin B12 therapy
consider Meclizine if no benefit from vestibular therapy
Consider CT angiogram head and neck to evaluate for stenosis is mimicking sense of dizziness, if no improvement with rehabilitation
continue Apixaban
Continue atorvastatin
Will follow
Consultation
Order
Date of Consultation: 05/03/24
Requesting Provider: Hospitalist
Reason for Consult: Vertigo
Subjective/Objective
Subjective Data
Date of Service: May 03, 2024
Left-Handed
Has had dizziness beginning '30 years ago' [1984] started had persistent sense of falling to the left since first severe attack. No recurrent events until 1 month with spinning now associated with events since that time including visual changes.
Patient reported passing out spells leading to pacemaker insertion.
Also with difficulty with walking, felt at risk for falling
Patient had a sense of inability to stand after getting out of bed yesterday ~ 2000 hours, awoke and fell backwards upon attempting to stand. Problem as been consistent, although mildly improved.
Patient currently using walker at home since 08/2023.
8 CTs of the head since 2007
Objective Data
Vital Signs
Temp Pulse Resp BP Pulse Ox
36.9 C 81 16 125/63 97
05/03/24 05:00 05/03/24 05:00 05/03/24 05:00 05/03/24 05:00 05/03/24 05:00
Lab Results
05/02/24 23:07
05/03/24 06:15
Sodium 141 mmol/L (135-145) 05/03/24 06:15
Potassium 4.1 mmol/L (3.5-5.1) 05/03/24 06:15
BUN 22 mg/dl (7-17) H 05/03/24 06:15
Glucose 87 mg/dl (70-99) 05/03/24 06:15
Calcium 9.4 mg/dl (8.4-10.2) 05/03/24 06:15
Ani-X-Upyruqtvgkh Pept 2330 pg/ml 05/02/24 23:07
Patient Allergies
adhesive tape Allergy (Verified 05/02/24 21:54)
skin tears
azithromycin [From Zithromax] Allergy (Verified 05/02/24 21:54)
Severe Nausea
levofloxacin [From Levaquin] Allergy (Verified 05/02/24 21:54)
Severe Nausea
oxycodone Allergy (Verified 05/02/24 21:54)
Hallucinations
CVA Assessment
Onset of Stroke Symptoms
Onset of symptoms known: Yes
Date of onset of symptoms: 05/02/24
Time of onset of symptoms: 21:00
Time pt last seen normal is known: Yes
Date last time pt seen normal: 05/02/24
Time last time pt seen normal: 21:00
NIH Stroke Score
Level of Consciousness: 0 - Alert
LOC Questions: 0-Answers both correctly
LOC Commands: 0-Performs both correctly
Best Horizontal Gaze: 0-Normal
Visual Garcia: 3=Bilateral hemianopia (On the left)
Facial Palsy: 0=Normal, symmetrical
Motor - Right Arm: 0=No drift 10 seconds
Motor - Left Arm: 0=No drift 10 seconds
Motor - Right Le-No drift 5 seconds
Motor - Left Le-No drift 5 seconds
Limb Ataxia: 0-Absent
Sensation: 0-Normal
Best Language: 0-No aphasia
Dysarthria: 0-Normal
Extinction and Inattention: 0-No abnormality
Total Score:: 3
Tenecteplase Contraindications
Inclusion and Exclusion criteria reviewed: Yes
IAT Contraindications: NIHSS < 6, Baseline mRS greater than or equal to 3 by history and Life expectancy < 1 year
Review of Systems
-
History Source: Patient
All other systems: Reviewed and negative
EENT: Negative Decreased Vision or Swallowing Difficulty
Respiratory: Negative Trouble Breathing
Cardiac: Negative Chest Pain
Abdomen/GI: Negative Incontinence of Stool
Genitourinary: Negative Incontinence
Musculoskeletal: Back Pain (chronic); Negative Neck Pain
Neuro: Headache; Negative Dizzy
Physical Exam
-
General: No Apparent Distress, Appears Stated Age and Other (Camptocormic)
Eyes: OU Absent Papilledema, Round OU, [place] Conjunctivae and No Ptosis
HEENT: Anicteric and Moist Mucous Membranes
Neck: Full Range of Motion
Respiratory: No Dyspnea
Cardiac: No JVD
GI: Non-distended
Skin: Unremarkable
Extremities: No Clubbing, No Cyanosis and No Edema
Psych: Negative Intact Judgement/Insight
Extended Neurological Exam
Mood & Affect: Mood Unremarkable and Affect Unremarkable
Attention Span & Concentration: Awake, Alert, Interactive and Mild Difficulty with 2 Step Request
Memory: Able to Recall (Month, year, location) and Vague; Negative Unable to Recall Personal History
Tremor: Hand Tremor Absent and Head Tremor Absent
Involuntary Movement: None
Speech: Quality Unremarkable and Quantity Unremarkable
Cranial Nerve II: Left Eye: Pupillary Reactivity Unremarkable, Pupillary Size Unremarkable and Visual Garcia Reduced (Left homonymous hemianopsia)
Cranial Nerve II: Right Eye: Pupillary Reactivity Unremarkable, Pupillary Size Unremarkable and Visual Garcia Reduced (Left homonymous hemianopsia)
Cranial Nerves III, IV, : Extraocular Movement: Extraocular Movement Full in all Directions
Cranial Nerve VII: Facial Symmetry: Normal Facial Symmetry
Cranial Nerve VIII: Hearing: Reduced on Left; Negative Reduced on Right
Cranial Nerves IX, X: Palate Movement: Palate Elevation Symmetric
Cranial Nerve XI: Shoulder Shrug: Unremarkable
Cranial Nerve XII: Tongue Protusion: Midline
Muscle Strength, Overall: Full Throughout
Muscle Bulk & Tone: Bulk Unremarkable and Tone Unremarkable
Pronator Drift: No Drift in Upper Extremities
Deep Tendon Reflexes: Unremarkable Throughout
Touch Sensation: Unremarkable
Coordination: [id number]-[id number] Testing Unremarkable
Babinski Sign: Absent Bilaterally
Data Reviewed
-
CT-A: Ordered
CT Head: Report Reviewed
Orthostatic Testing: Ordered
Labs: Ordered and Report Reviewed
Reviewed with: Physician and Patient
Old Records: Summarized
Medications
-
Active Medications
Generic Name Dose Route Start Last Admin
Trade Name Freq PRN Reason Stop Dose Admin
Acetaminophen 650 mg 05/03/24 04:49
Acetaminophen 325 Mg Tablet PO 05/31/24 04:48
Q4HPRN PRN
mild pain/MALONE/temp> 100.4F
Amiodarone HCl 100 mg 05/03/24 18:00
Amiodarone 200 Mg Tablet PO 05/31/24 17:59
QPM LORNA
Apixaban 2.5 mg 05/03/24 08:00 05/03/24 07:29
Apixaban (Eliquis) 2.5 Mg Tablet PO 05/31/24 07:59 2.5 mg
BID LORNA Administration
Atorvastatin Calcium 10 mg 05/03/24 18:00
Atorvastatin (Lipitor) 10 Mg Tablet PO 05/31/24 17:59
QPM LORNA
Bisacodyl 10 mg 05/03/24 04:49
Bisacodyl 10 Mg Rectal Suppository RECTAL 05/31/24 04:48
[id number] PRN
constipation
Carvedilol 3.125 mg 05/03/24 08:00 05/03/24 07:29
Carvedilol 6.25 Mg Tablet PO 05/31/24 07:59 3.125 mg
BID LORNA Administration
Cephalexin HCl 250 mg 05/03/24 18:00
Cephalexin 250 Mg Capsule PO
QPM LORNA
Furosemide 40 mg 05/03/24 08:00 05/03/24 07:30
Furosemide 40 Mg Tablet PO 05/31/24 07:59 40 mg
DAILY LORNA Administration
Meclizine HCl 25 mg 05/03/24 04:49
Meclizine 25 Mg Tablet PO 05/31/24 04:48
Q8HPRN PRN
vertigo
Ondansetron HCl 4 mg 05/03/24 04:49
Ondansetron 4 Mg/2 Ml Vial IV 05/31/24 04:48
Q6HPRN PRN
nausea and vomiting
Pantoprazole Sodium 40 mg 05/03/24 03:38
Pantoprazole 40 Mg Delayed Release Tablet PO 05/31/24 03:37
QPM PRN
upset stomach
Polyethylene Glycol 17 grams 05/03/24 04:49
Polyethylene Glycol Powder 17 Grams Packet PO 05/31/24 04:48
DAILYPRN PRN
constipation
Potassium Chloride 10 meq 05/03/24 08:00 05/03/24 07:30
Potassium Chloride 10 Meq Extended Release Tablet PO 05/31/24 07:59 10 meq
DAILY LORNA Administration
Sacubitril/Valsartan 1 tab 05/03/24 08:00 05/03/24 07:28
Sacubitril 24 Mg/Valsartan 26 Mg (Entresto) Tab PO 05/31/24 07:59 1 tab
BID LORNA Administration
Senna/Docusate Sodium 1 tablet 05/03/24 04:49
Docusate W/Senna (Venecia-Colace) Tablet PO 05/31/24 04:48
BIDPRN PRN
constipation
Home Medications
�Medication �Instructions �Recorded
apixaban 2.5 mg tablet (Eliquis) 2.5 mg PO BID 10/18/17
L.acidoph, paracasei,B. lactis 10 1 ea PO DAILY@1200 Supplement 11/10/17
billion cell capsule
cholecalciferol (vitamin D3) 50 2,000 unit PO DAILY@1200 Supplement 12/17/19
mcg (2,000 unit) chewable tablet
cephalexin 250 mg capsule 250 mg PO QPM 30 days #30 caps 01/27/22
acetaminophen 500 mg tablet 1,000 mg PO Q6H PRN pain 02/26/22
atorvastatin 10 mg tablet 10 mg PO QPM High cholesterol 30 03/09/22
days #30 tabs
furosemide 40 mg tablet (Lasix) 40 mg PO DAILY #30 tabs 03/09/22
potassium chloride 10 mEq 10 meq PO DAILY 30 days #30 tabs 03/09/22
tablet,extended release(part/cryst)
sacubitril 24 mg-valsartan 26 mg 1 tab PO BID 30 days #60 tabs 03/09/22
tablet (Entresto)
amiodarone 200 mg tablet (Pacerone) 100 mg PO QPM 01/24/23
famotidine 10 mg tablet 10 mg PO HS 01/24/23
carvedilol 6.25 mg tablet 3.125 mg PO BID heart rate 05/02/24
omeprazole 20 mg capsule,delayed 20 mg PO QPM PRN upset stomach 05/02/24
release
Past History
Past History
ED Past Medical History: Arrthythmia (Atrial fibrillation), CAD, Cancer (Basal cell carcinoma 2022), CHF, COPD, CVA (Right sided weakness), GERD (Fink's esophagus, hiatal hernia), HTN, Hypercholesterolemia, Valvular disease (aortic stenosis,
rheumatic heart disease) and Other (Chronic UTI, renal cyst, Vertigo, PE, Sleep apnea, Rheumatic heart disease, Diverticulitis, Hiatal hernia, IBS, Ulcers, UTI)
ED Past Surgical History: Cardiac (Pacemaker 2021), Cholecystectomy, Orthopedic (Left knee, Left shoulder surgery), Tonsilectomy and Other (Basal cell carcinoma resection 2022)
Social History
Tobacco: Non-smoker
Alcohol: None
Drug: None
Personal:
Living: with family
Employment: Retired
Family History
Family History: Other (Stroke and cancer)
[2024-05-03 09:49] LABS: TSH Reflex To Free T4 2.25 uIU/ml (0.47-4.68)
[2024-05-03 09:53] LABS: Ferritin 12.2 ng/ml (11.1-264.0)
[2024-05-03 10:24] LABS: Folate 17.6 ng/ml (2.76-20); Vitamin B12 194 pg/ml (239-931)
[2024-05-03 10:35] LABS: Erythrocyte Sed Rate 19 mm/hour (0-20)
--- NOTE | 2024-05-03 11:43 | W.PN.UPDATE ---
Update Note
Progress Note Update
Seen and examined independent of pulmonary physician. Physician. Nonbillable note. Resting in bed. States her symptoms of dizziness is slowly improving. Not much appetite. Will try to eat lunch. Denies any headache or vision problems.
Currently resting in bed.
General: nad
HEENT: NormoCephalic, Anicteric, Moist mucous membranes,
Respiratory: Clear
Cardiac: S1/S2, Regular Rhythm and Murmur
GI: Soft and Normal Bowel Sounds
Skin: Warm
Neuro: Nonfocal/grossly intact
Psych: Calm
IMPRESSION:
88 female with , MR, cardiomyopathy, HFrEF - EF 30%, CVA, A fib on Eliquis, chronic subdural/ subarachnoid hemorrhage comes in with subacute dizziness episodes for a month but appeared to have a more persistent episode since dinner. Reports dizzy
with turning head (worse towards left) horizontal or neck extension or standing. Describes the sensation as feeling she would pass out. No trauma. Denies chest pain, sob. Intermittent palpitations. No signs of acute infection. Could not
ambulate due to the persistent symptom when trying to move despite meclizine x 2. No tinnitus. Chronic moderate hearing loss. Exam shows no focal neurological deficit. Was not able to elicit nystagmus on horizontal or vertical saccades. CT head
unremarkable. ECG, cbc, lytes, bun, cr unchanged from prior with paced rhythm.
PLAN:
1. Dizziness - Related to head position changes horizontally and with neck extension and so c/w vertigo though patient was vague regarding spinning sensation, she reports more head heaviness or feeling she is going to faint. Unlikely this
positional changes are sufficient for hemodynamic changes.
- admit to telemetry given risk factors
- trop has been negative, no further trending
- interrogating PPM, had symptoms while tele was showing normal paced rhythm
- Try orthos
- no signs of active infection
- cannot get mri/mra due to PPM dependence. Possibly vascular insufficiency but avoiding contrast due to low GFR unless neuro recommends
- prn meclizine
- neurology consulted
2. AFIb s/p PPM - Paced rhythm at 70, no abnormalities on ppm interrogation.
- continue amio 100, carvedilol 3.125
- continue qliauis 2.5 bid
3. CHF EF 30% - euvolemic.
- orthostatic vs
- continue entresto, carvedilol lasix Upon admission CT head was done which was unremarkable and showed chronic CVA.
'
PT/OT
[2024-05-03] MEDS: VITAMIN B-12 1000 MCG PO (12:25)
[2024-05-03] MEDS: FERRLECIT 110 MG IV (13:07)
--- NOTE | 2024-05-03 15:45 | CM ---
IA completed at bedside with pt and daughter.
Pt is an 88yr old female admitted on OBS for Vertigo.
COTA was verbally reviewed with pt and daughter.
At baseline, pt lives with her daughter in a 1 level home with 2 steps to enter.
Pt uses a RW for mobility and is indep with most ADLs. Daughter aides with bathing at the sink because it is difficult for pt to get in and out of the tub. Pt does use the wheelchair when out and doing longer distances.
Pt is able to reheat meals in the microwave and is alone much of the day while her daughter is working outside of the home.
Pt has been to [facility] and has used [facility].
PCP; Moises Ventura
Pharm; Jose Maldonado
PLAN; Will be evaluated by PT when order placed. Did talk about SNF vs VN. Is OBS and Med A
[2024-05-03] MEDS: PACERONE 100 MG PO (17:27)
[2024-05-03] MEDS: LIPITOR 10 MG PO (17:28)
[2024-05-03] MEDS: KEFLEX 250 MG PO (17:28)
[2024-05-03] MEDS: DESENEX/MITRAZOL/ZEASORB 1 APPLIC TOPICAL (23:02)
[2024-05-03] MEDS: FEOSOL 325 MG PO (23:03)
[2024-05-03] MEDS: ENTRESTO 24 MG/26 MG PO (23:42)
[2024-05-04] VITALS (8 sets, daily range): BP systolic 92–147; BP diastolic 49–72; PULSE 70–77; O2SAT 96; BMI 27.4
[2024-05-04] MEDS: ENTRESTO 24 MG/26 MG 1 TAB PO (07:25)
[2024-05-04] MEDS: COREG 3.125 MG PO ×2 (07:26→20:04)
[2024-05-04] MEDS: LASIX 40 MG PO (07:26)
[2024-05-04] MEDS: VITAMIN B-12 1000 MCG PO (07:26)
[2024-05-04] MEDS: ELIQUIS 2.5 MG PO ×2 (07:26→20:04)
[2024-05-04] MEDS: KCL 10 MEQ PO (07:26)
[2024-05-04] MEDS: DESENEX/MITRAZOL/ZEASORB 1 APPLIC TOPICAL ×2 (07:27→20:04)
--- NOTE | 2024-05-04 08:46 | W.PN.NEURO.1 ---
Addendum entered and electronically signed by London Pruett MD 05/04/24 10:47:
Studies reviewed.
I have personally examined the patient. I reviewed and agree with the INSURANCE BILLER's Note.
My addenda:
Awake, alert, interactive. No acute distress.
Speech intact. No tremor.
Extra-ocular movements grossly intact. Homonymous hemianopsia
Facial movements full and symmetric. Hearing intact to normal conversational volume.
Normal UE movements bilaterally.
Neck: full ROM.
Chest: no dyspnea
Heart: no JVD
Ext: (-) Clubbing, (-) Cyanosis, (-) Edema
IMPRESSIONS/RECOMMENDATIONS:
Abrupt onset of dizziness which is recurrent. Possibly multifactorial including variable blood pressures, vitamin B-12 deficiency and iron deficiency
Patient with improved symptomatology today
Continue lifelong iron supplementation
Initiate vitamin B12 replacement
Vestibular therapy
Due to widely variable although not orthostatic blood pressures, initiate abdominal binder and encourage fluids especially as the patient has at times hypotension
Patient unable to have additional neuroimaging due to pacemaker
D/W patient
Will continue to follow as needed.
Original Note:
Today's Communication / Plan
-
.
Neuro Assessment/Plan
Assessment
Abrupt recurrence of dizziness
With reported history of dizziness in 2011 and 2012 (potentially earlier)
Differential diagnosis includes BPPV, hypotension, low ferritin level, vitamin B12 deficiency, and orthostatic hypotension even though not clearly demonstrated by orthostatic vital signs.
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
Plan
continue to follow orthostatics with 3 minute increments in-between timing
Continue iron replacement, ferrous sulfate 325mg daily.
Continue vitamin B12 therapy, 1000mcg PO daily.
Physical therapy evaluation, outpatient vestibular therapy.
Continue home Apixaban.
Continue atorvastatin 10mg daily. LDL goal <70 due to old stroke. LDL is 60, okay to not place on high intensity dose due to LDL being at goal and advanced age.
Patient can follow-up with Neurology as an outpatient, may see the INSURANCE BILLER or Dr. Pruett.
Subjective/Objective
Subjective Data
Date of Service: May 04, 2024
No acute events overnight. Patient reports feeling improved this morning, her dizziness has resolved. She does endorse a right-sided head 'heaviness' or pressure sensation and intermittent nausea. She notes chronic bilateral hand tingling that
improves with movement. She denies any vision changes, speech/swallow difficulty, weakness, chest pain, palpitations, and shortness of breath. Chronic left homonymous hemianopia.
Objective Data
Vital Signs
Temp Pulse Resp BP Pulse Ox
98.2 F 73 18 119/60 98
05/04/24 07:39 05/04/24 07:39 05/04/24 07:39 05/04/24 07:39 05/04/24 07:39
Lab Results
05/02/24 23:07
05/03/24 06:15
Sodium 141 mmol/L (135-145) 05/03/24 06:15
Potassium 4.1 mmol/L (3.5-5.1) 05/03/24 06:15
BUN 22 mg/dl (7-17) H 05/03/24 06:15
Glucose 87 mg/dl (70-99) 05/03/24 06:15
Calcium 9.4 mg/dl (8.4-10.2) 05/03/24 06:15
Itv-C-Tqsfitkxfmz Pept 2330 pg/ml 05/02/24 23:07
Vitamin B12 194 pg/ml (239-931) L 05/03/24 06:15
Patient Allergies
adhesive tape Allergy (Verified 05/02/24 21:54)
skin tears
azithromycin [From Zithromax] Allergy (Verified 05/02/24 21:54)
Severe Nausea
levofloxacin [From Levaquin] Allergy (Verified 05/02/24 21:54)
Severe Nausea
oxycodone Allergy (Verified 05/02/24 21:54)
Hallucinations
Review of Systems
-
History Source: Patient
EENT: Decreased Vision (chronic left-sided vision loss); Negative Blurry Vision or Swallowing Difficulty
Respiratory: Negative Cough or Trouble Breathing
Cardiac: Negative Chest Pain or Palpitations
Abdomen/GI: Negative Nausea
Neuro: Numbness; Negative Dizzy, Headache, Weakness, Ataxia, Tremors or Speech Problem
Physical Exam
-
General: Well Developed, Well Nourished and No Apparent Distress
Eyes: No Ptosis and PERRLA
HEENT: Normocephalic and Atraumatic
Neck: Full Range of Motion
Respiratory: No Dyspnea
GI: Non-distended
Extremities: No Clubbing, No Cyanosis and No Edema
Psych: Unremarkable
Extended Neurological Exam
Mood & Affect: Mood Unremarkable and Affect Unremarkable
Attention Span & Concentration: Awake, Alert and Interactive
Memory: Unremarkable and Able to Recall
Tremor: Hand Tremor Absent and Head Tremor Absent
Involuntary Movement: None
Speech: Quality Unremarkable, Quantity Unremarkable and Rate of Production Unremarkable
Cranial Nerve II: Left Eye: Pupillary Reactivity Unremarkable, Pupillary Size Unremarkable and Visual Garcia Reduced (chronic left homonymous hemianopia)
Cranial Nerve II: Right Eye: Pupillary Reactivity Unremarkable, Pupillary Size Unremarkable and Visual Garcia Reduced (chronic left homonymous hemianopia)
Cranial Nerves III, IV, : Extraocular Movement: Extraocular Movement Full in all Directions
Cranial Nerve V: Facial Sensation: Intact to Light Touch
Cranial Nerve VII: Facial Symmetry: Normal Facial Symmetry
Cranial Nerve VIII: Hearing: Unremarkable Hearing to Normal Conversational Volume
Cranial Nerves IX, X: Palate Movement: Palate Elevation Symmetric
Cranial Nerve XI: Shoulder Shrug: Unremarkable
Cranial Nerve XII: Tongue Protusion: Midline
Muscle Strength, Overall: Full Throughout
Pronator Drift: No Drift in Upper Extremities and No Drift in Lower Extremities
Coordination: Dfjtzb-[id number]-[id number] Testing Unremarkable
Data Reviewed
-
CT Head: Report Reviewed and Image Reviewed
Orthostatic Testing: Report Reviewed
Labs: Report Reviewed
Lipid Profile: Pending
HgbA1C: Pending
Reviewed with: Physician and Patient
Medications
-
Active Medications
Generic Name Dose Route Start Last Admin
Trade Name Freq PRN Reason Stop Dose Admin
Acetaminophen 650 mg 05/03/24 04:49
Acetaminophen 325 Mg Tablet PO 05/31/24 04:48
Q4HPRN PRN
mild pain/MALONE/temp> 100.4F
Amiodarone HCl 100 mg 05/03/24 18:00 05/03/24 17:27
Amiodarone 200 Mg Tablet PO 05/31/24 17:59 100 mg
QPM LORNA Administration
Apixaban 2.5 mg 05/03/24 08:00 05/04/24 07:26
Apixaban (Eliquis) 2.5 Mg Tablet PO 05/31/24 07:59 2.5 mg
BID LORNA Administration
Atorvastatin Calcium 10 mg 05/03/24 18:00 05/03/24 17:28
Atorvastatin (Lipitor) 10 Mg Tablet PO 05/31/24 17:59 10 mg
QPM LORNA Administration
Bisacodyl 10 mg 05/03/24 04:49
Bisacodyl 10 Mg Rectal Suppository RECTAL 05/31/24 04:48
[id number] PRN
constipation
Carvedilol 3.125 mg 05/04/24 20:00
Carvedilol 3.125 Mg Tablet PO 06/01/24 19:59
BID LORNA
Cephalexin HCl 250 mg 05/03/24 18:00 05/03/24 17:28
Cephalexin 250 Mg Capsule PO 250 mg
QPM LORNA Administration
Cyanocobalamin 1,000 mcg 05/03/24 13:00 05/04/24 07:26
Cyanocobalamin 1,000 Mcg Tablet PO 05/31/24 12:59 1,000 mcg
DAILY LORNA Administration
Ferrous Sulfate 325 mg 05/03/24 22:00 05/03/24 23:03
Ferrous Sulfate 325 Mg Tablet PO 05/31/24 21:59 325 mg
HS LORNA Administration
Furosemide 40 mg 05/03/24 08:00 05/04/24 07:26
Furosemide 40 Mg Tablet PO 05/31/24 07:59 40 mg
DAILY LORNA Administration
Meclizine HCl 25 mg 05/03/24 04:49
Meclizine 25 Mg Tablet PO 05/31/24 04:48
Q8HPRN PRN
vertigo
Miconazole Nitrate 0 applic 05/03/24 20:00 05/04/24 07:27
Miconazole Powder Bottle TOPICAL 05/31/24 19:59 1 applic
BID LORNA Administration
Ondansetron HCl 4 mg 05/03/24 04:49
Ondansetron 4 Mg/2 Ml Vial IV 05/31/24 04:48
Q6HPRN PRN
nausea and vomiting
Pantoprazole Sodium 40 mg 05/03/24 03:38
Pantoprazole 40 Mg Delayed Release Tablet PO 05/31/24 03:37
QPM PRN
upset stomach
Polyethylene Glycol 17 grams 05/03/24 04:49
Polyethylene Glycol Powder 17 Grams Packet PO 05/31/24 04:48
DAILYPRN PRN
constipation
Potassium Chloride 10 meq 05/03/24 08:00 05/04/24 07:26
Potassium Chloride 10 Meq Extended Release Tablet PO 05/31/24 07:59 10 meq
DAILY LORNA Administration
Sacubitril/Valsartan 1 tab 05/03/24 08:00 05/04/24 07:25
Sacubitril 24 Mg/Valsartan 26 Mg (Entresto) Tab PO 05/31/24 07:59 1 tab
BID LORNA Administration
Senna/Docusate Sodium 1 tablet 05/03/24 04:49
Docusate W/Senna (Venecia-Colace) Tablet PO 05/31/24 04:48
BIDPRN PRN
constipation
Home Medications
�Medication �Instructions �Recorded
apixaban 2.5 mg tablet (Eliquis) 2.5 mg PO BID 10/18/17
L.acidoph, paracasei,B. lactis 10 1 ea PO DAILY@1200 Supplement 11/10/17
billion cell capsule
cholecalciferol (vitamin D3) 50 2,000 unit PO DAILY@1200 Supplement 12/17/19
mcg (2,000 unit) chewable tablet
cephalexin 250 mg capsule 250 mg PO QPM 30 days #30 caps 01/27/22
acetaminophen 500 mg tablet 1,000 mg PO Q6H PRN pain 02/26/22
atorvastatin 10 mg tablet 10 mg PO QPM High cholesterol 30 03/09/22
days #30 tabs
furosemide 40 mg tablet (Lasix) 40 mg PO DAILY #30 tabs 03/09/22
potassium chloride 10 mEq 10 meq PO DAILY 30 days #30 tabs 03/09/22
tablet,extended release(part/cryst)
sacubitril 24 mg-valsartan 26 mg 1 tab PO BID 30 days #60 tabs 03/09/22
tablet (Entresto)
amiodarone 200 mg tablet (Pacerone) 100 mg PO QPM Arrhythmia 01/24/23
famotidine 10 mg tablet 10 mg PO HS Gastrointestinal Issue 01/24/23
omeprazole 20 mg capsule,delayed 20 mg PO QPM PRN upset stomach 05/02/24
release
carvedilol 3.125 mg tablet 3.125 mg PO BID Heart 05/04/24
Disease/Condition
[2024-05-04] MEDS: COMPAZINE 10 MG IV (09:24)
[2024-05-04 09:56] LABS: HDL Cholesterol 62 mg/dl; LDL Cholesterol, Calculated 60 mg/dl; Total Cholesterol 142 mg/dl (50-199); Triglyceride 102 mg/dl (10-149); Very Low Density Lipoprotein 20 mg/dl (0-30)
--- NOTE | 2024-05-04 10:24 | CM ---
Met with patient at bedside
Await PT eval for recommendations
Has had [facility] in past & [facility] in past
PLAN: Await therapy evals
[2024-05-04 11:26] LABS: Glycohemoglobin (HgbA1c) 5.4 % (4.0-5.6)
--- NOTE | 2024-05-04 12:54 | W.PN.HOSP.TC ---
Today's Communication/Plan
-
Continue meclizine PRN
PT/OT eval
Vestibular therapy at discharge
Assessment / Plan
Assessment / Plan
#Dizziness
-Suspicion high for vertiginous process such as BPPV versus vestibular neuritis versus labyrinthitis
-Was started on as needed meclizine yesterday, symptomatically improved this morning
-No acute events on telemetry, orthostatic vital signs were negative
-Plan to discharge on course of meclizine with vestibular therapy prescription
#Paroxysmal AF
-Home medications include amiodarone, carvedilol, Eliquis
-Heart rate has been WNL here, mostly NSR
-Unlikely contributing
#Chronic HFrEF
#Cardiac valve disease
-Most recent LVEF 30%, unclear etiology
-Home medications include beta-burak, ARNI
-Currently on Lasix 40 mg daily with KCl 10 mEq
-Euvolemic at this time
#COPD
-Does not seem to be on any inhaler therapies at home
-Does not use supplemental oxygen, no signs of exacerbation
#GERD
-Stable on PPI
#H/O CVA/subarachnoid hemorrhage
-CT head on arrival with signs of old right occipital lobe infarct, no new finding
-Remains on Eliquis 2.5 mg twice daily without issue
#S/P PPM
-Unclear reason for placement, possibly sick sinus syndrome
-Pacemaker was interrogated on arrival, no issues
DVT prophylaxis: Home Eliquis
Diet: Regular
CODE STATUS: Full code
Anticipated Discharge: Within 24 hours
Subjective/Interval History
-
Date of Service: May 04, 2024
Seen and examined at the bedside. No acute vents reported overnight. AFVSS this morning.
She was sleeping when I entered the room. Upon awakening she denies any dizziness or vertiginous symptoms. Stated that she felt much better. Orthostatic vital signs negative
Denies chest pain, dyspnea, palpitations, lightheadedness, fevers or chills, bleeding or bruising, paresthesias or weakness, GI issues, urinary issues
Objective Data
-
Vital Signs:
Vital Signs
Temp Pulse Resp BP Pulse Ox
98.2 F 71 15 101/55 93
05/04/24 12:06 05/04/24 12:06 05/04/24 12:06 05/04/24 12:06 05/04/24 12:06
I&O
05/03/24 05/04/24 05/05/24
06:59 06:59 06:59
Intake Total 590 / 590
Balance 590 / 590
Review of Systems
-
History Source: Patient
All other systems: Reviewed and negative
Physical Exam
-
General: Well Nourished, No Apparent Distress and Comfortable
HEENT: Normocephalic, Atraumatic and Moist Mucous Membranes
Respiratory: Clear to Auscultation and Non Labored Respirations
Cardiac: Regular Rhythm and S1/S2; Negative Murmur, Rub or Gallop
GI: Soft, Nontender, Nondistended and Normal Bowel Sounds
Musculoskeletal: No Clubbing, No Cyanosis and No Edema
Skin: Warm, Dry and Normal Turgor; Negative Rash
Neuro: AO x 3, Nonfocal/Grossly Intact and Central Nerve's Intact
[2024-05-04] MEDS: KEFLEX 250 MG PO (17:14)
[2024-05-04] MEDS: LIPITOR 10 MG PO (17:14)
[2024-05-04] MEDS: PACERONE 100 MG PO (17:14)
[2024-05-04] MEDS: FEOSOL 325 MG PO (20:04)
[2024-05-04] MEDS: ENTRESTO 24 MG/26 MG PO (21:27)
[2024-05-05 03:09] VITALS: BP 99/48
[2024-05-05 06:00] VITALS: BMI 27.6
[2024-05-05 07:35] VITALS: BP 108/56
[2024-05-05] MEDS: ELIQUIS 2.5 MG PO (07:44)
[2024-05-05] MEDS: LASIX 40 MG PO (07:45)
[2024-05-05] MEDS: DESENEX/MITRAZOL/ZEASORB 1 APPLIC TOPICAL (07:45)
[2024-05-05] MEDS: KCL 10 MEQ PO (07:45)
[2024-05-05] MEDS: VITAMIN B-12 1000 MCG PO (07:45)
[2024-05-05] MEDS: COREG 3.125 MG PO (07:45)
[2024-05-05] MEDS: ENTRESTO 24 MG/26 MG 1 TAB PO (07:45)
[2024-05-05 09:17] VITALS: BP 114/64; BP 134/62; PULSE 70; O2SAT 96
--- NOTE | 2024-05-05 09:43 | W.PN.HOSP.TC ---
Today's Communication/Plan
-
Discharge to SNF
Assessment / Plan
Assessment / Plan
#Dizziness
-Suspicion high for vertiginous process such as BPPV versus vestibular neuritis versus labyrinthitis
-Was started on as needed meclizine yesterday, symptomatically improved this morning
-No acute events on telemetry, orthostatic vital signs were negative
-Plan to discharge on course of meclizine with vestibular therapy prescription
-Medically stable for discharge to SNF when authorization process complete
#Paroxysmal AF
-Home medications include amiodarone, carvedilol, Eliquis
-Heart rate has been WNL here, mostly NSR
-Unlikely contributing
#Chronic HFrEF
#Cardiac valve disease
-Most recent LVEF 30%, unclear etiology
-Home medications include beta-burak, ARNI
-Currently on Lasix 40 mg daily with KCl 10 mEq
-Euvolemic at this time
#COPD
-Does not seem to be on any inhaler therapies at home
-Does not use supplemental oxygen, no signs of exacerbation
#GERD
-Stable on PPI
#H/O CVA/subarachnoid hemorrhage
-CT head on arrival with signs of old right occipital lobe infarct, no new finding
-Remains on Eliquis 2.5 mg twice daily without issue
#S/P PPM
-Unclear reason for placement, possibly sick sinus syndrome
-Pacemaker was interrogated on arrival, no issues
DVT prophylaxis: Home Eliquis
Diet: Regular
CODE STATUS: Full code
Anticipated Discharge: Today
Subjective/Interval History
-
Date of Service: May 05, 2024
Seen and examined at the bedside. No acute events reported overnight. AFVSS this morning
She was sitting up and stated she felt well, improved from previous days in the hospital. Denied dizziness.
She denied any new acute complaints including chest pain, dyspnea, fevers or chills, lightheadedness, paresthesia or weakness, bleeding or bruising
Objective Data
-
Vital Signs:
Vital Signs
Temp Pulse Resp BP Pulse Ox
98.7 F 71 16 108/56 96
05/05/24 07:35 05/05/24 07:35 05/05/24 07:35 05/05/24 07:35 05/05/24 07:35
I&O
05/04/24 05/05/24 05/06/24
06:59 06:59 06:59
Intake Total 590 / 590 930 / 930
Balance 590 / 590 930 / 930
Review of Systems
-
History Source: Patient
All other systems: Reviewed and negative
Physical Exam
-
General: Well Nourished, No Apparent Distress, Comfortable and Other (Frail-appearing)
HEENT: Normocephalic, Atraumatic and Moist Mucous Membranes
Respiratory: Clear to Auscultation and Non Labored Respirations
Cardiac: Regular Rhythm and S1/S2; Negative Murmur
GI: Soft, Nontender, Nondistended and Normal Bowel Sounds
Musculoskeletal: No Clubbing, No Cyanosis and No Edema
Skin: Warm and Dry; Negative Rash
Neuro: AO x 3, Nonfocal/Grossly Intact and Central Nerve's Intact
Psych: Calm
--- NOTE | 2024-05-05 10:35 | CM ---
PT OT indicated SNF.
Pt here for vertigo .
spoke with dgt Candi [phone] reviewed PT OT with dgt. Candi questioned if she needed SNF or out pt vestibular therapy.
Requested MD to call daughter.
MD spoke with dgt .Pt and dgt requested home with out pt therapy.
PLAN Home with vestibular out pt therapy
--- NOTE | 2024-05-05 10:49 | W.DCSUMMARY ---
Discharge Summary
Discharge Data
Date of Admission: 05/04/24
Date of Discharge: 05/05/24
-
Pending Results: No
Hospital Course
88-year-old female with HFrEF (LVEF 30%), rheumatic heart disease on antibiotic, paroxysmal AF on Eliquis, COPD, GERD, H/O CVA, H/O SAH that presented to the hospital with vertiginous symptoms/dizziness. CT head on arrival was unremarkable. No
obvious metabolic etiologies for vertigo. No focal deficits or nystagmus. Was started on oral meclizine as needed with improvement. By day 2 of hospital stay her symptoms had resolved. Worked with physical therapy and Occupational Therapy in the
hospital, received vestibular therapy as well. Recommendation for SNF at discharge however patient's family preferred home disposition with outpatient physical therapy and vestibular therapy. Prescription was provided for, 1 week of meclizine
every 8 hours as needed provided. Started on iron and B12 supplementation supportively.
Discharge Plan
-
Patient Disposition: [facility]/SNF
Discharge Diagnosis/Procedures: Vertigo
Condition: Good
Diet: No added salt
Activity: As tolerated
Driving Restrictions: Not until seen by your Dr
Bathing Restrictions: None
Blood Work: None
Others Tests: None
Other Services: PT and OT
Specialty Instructions: Weigh Daily- Call MD for wt gain/loss 3 lbs overnight/5 lbs in 1 week
Activity Restrictions/Additional Instructions:
After discharge from SNF have follow-up appointment scheduled with family doctor for routine posthospital visit
Referrals:
Moises Ventura DO [Family Provider] -
Additional Discharge Medication Instructions: Continue meclizine 25 mg every 8 hours as needed for vertiginous symptoms
Continue vitamin B12 and iron supplements
Monitor home blood pressure before doses of carvedilol, hold carvedilol if systolic blood pressure (top number) <95 mmHg
Prescriptions:
New
meclizine 25 mg Tablet
25 mg PO Q8HPRN PRN (Reason: vertigo) 7 Days Qty: 30 0RF
ferrous sulfate [FeroSul] 325 mg (65 mg iron) Tablet
325 mg PO HS 30 Days Qty: 30 0RF
cyanocobalamin (vitamin B-12) 1,000 mcg Tablet
1,000 mcg PO DAILY 30 Days Qty: 30 0RF
Continued
Eliquis 2.5 MG tablet
2.5 mg PO BID 0RF
L.acidoph, paracasei,B. lactis 1 EACH capsule
1 ea PO DAILY@1200
cholecalciferol (vitamin D3) 50 MCG tablet,chewable
2,000 unit PO DAILY@1200
acetaminophen 500 mg Tablet
1,000 mg PO Q6H PRN (Reason: pain)
potassium chloride 10 mEq Tablet,Er Particles/Crystals
10 meq PO DAILY 30 Days Qty: 30 0RF
Entresto 24-26 mg Tablet
1 tab PO BID 30 Days Qty: 60 0RF
furosemide [Lasix] 40 mg tablet
40 mg PO DAILY Qty: 30 0RF
atorvastatin 10 mg Tablet
10 mg PO QPM 30 Days Qty: 30 0RF
amiodarone [Pacerone] 200 mg tablet
100 mg PO QPM
famotidine 10 mg Tablet
10 mg PO HS
omeprazole 20 mg Capsule,Delayed Release(Dr/Ec)
20 mg PO QPM PRN (Reason: upset stomach)
carvedilol 3.125 mg tablet
3.125 mg PO BID
cephalexin 250 mg Capsule
250 mg PO QPM 30 Days Qty: 30 0RF
Discharge Orders:
Discharge Patient (As Directed); Ordered 05/05/24
Ordered By: Anders Hardin
Discharge Date and Time
Print Language: BENGALI
[2024-05-05 11:14] VITALS: BP 105/76
== END 2024-05-05 14:46 | disposition home or self-care (01) | DRG 149 ==
LOC: 3 WEST ACU 13:47
PROVIDERS: Hospitalist; ADMITTING PHYSICIAN Internal Medicine; ATTENDING PHYSICIAN Internal Medicine; CONSULT PHYSICIAN Psychiatry & Neurology Neurology; EMERGENCY PHYSICIAN Emergency Medicine; FAMILY PHYSICIAN Internal Medicine
DX: H81.90 Unspecified disorder of vestibular function, unspecified ear (principal); I50.22 Chronic systolic (congestive) heart failure; I48.21 Permanent atrial fibrillation; I42.9 Cardiomyopathy, unspecified; J44.9 Chronic obstructive pulmonary disease, unspecified; K21.9 Gastro-esophageal reflux disease without esophagitis; I08.0 Rheumatic disorders of both mitral and aortic valves; I11.0 Hypertensive heart disease with heart failure; Z79.01 Long term (current) use of anticoagulants; Z86.73 Personal history of transient ischemic attack (TIA), and cerebral infarction without residual deficits; Z95.0 Presence of cardiac pacemaker; Z85.828 Personal history of other malignant neoplasm of skin; Z90.49 Acquired absence of other specified parts of digestive tract; D64.9 Anemia, unspecified; D70.9 Neutropenia, unspecified; E78.00 Pure hypercholesterolemia, unspecified; G47.30 Sleep apnea, unspecified; H91.90 Unspecified hearing loss, unspecified ear; I25.10 Atherosclerotic heart disease of native coronary artery without angina pectoris; I45.10 Unspecified right bundle-branch block; K22.70 Barrett's esophagus without dysplasia; K44.9 Diaphragmatic hernia without obstruction or gangrene; K58.9 Irritable bowel syndrome, unspecified; W19.XXXA Unspecified fall, initial encounter; R00.2 Palpitations; K57.30 Diverticulosis of large intestine without perforation or abscess without bleeding
CPT/HCPCS: 70450; 80048; 80053; 80061; 82607; 82728; 82746; 83036; 83735; 83880; 84443; 84484; 85025; 85652; 93005; 93288; 97163; 97166; 97535; 99285; J2916

== ENCOUNTER → 2024-06-19 08:49 | Outpatient (REF) | payer MEDICARE, SELFPAY ==
[2024-06-19 10:01] LABS: % Basophils 0.7 % (0-2); % Eosinophils 2.1 % (0-6); % Immature Granulocytes 0.2 % (0-0.5); % Lymphocytes 22.2 % (20.5-51.1); % Monocytes 10.4 % (1.7-9.3); % Neutrophils 64.4 % (42.2-75.2); Absolute Eosinophils 0.1 10^3/uL (0-0.7); Absolute Lymphocytes 0.9 10^3/uL (1.2-3.4); Absolute Monocytes 0.4 10^3/uL (0.1-0.6); Absolute Neutrophils 2.7 10^3/uL (1.4-6.5); Hematocrit 34.5 % (37.0-47.0); Hemoglobin 11.1 g/dL (12.0-16.0); Mean Corp Hgb Conc. 32.2 g/dL (33.0-37.0); Mean Corpuscular Volume 102.7 fL (81.0-99.0); Mean Platelet Volume 9.2 fL (7.4-10.4); Nucleated Red Blood Cells % 0 %; Platelet Count 145 10^3/uL (130-400); Red Blood Cell Count 3.36 10^6/uL (4.20-5.40); Red Cell Dist. Width 13.4 % (11.5-14.5); White Blood Cell Count 4.2 10^3/uL (4.8-10.8)
[2024-06-19 10:17] LABS: ALT (SGPT) 15 U/L (0-35); AST (SGOT) 27 U/L (14-36); Albumin 3.8 g/dl (3.5-5.0); Alkaline Phosphatase 97 U/L (38-126); Blood Urea Nitrogen 24 mg/dl (7-17); Calcium 9.4 mg/dl (8.4-10.2); Carbon Dioxide 29 mmol/L (22-30); Chloride 104 mmol/L (98-107); Glucose 92 mg/dl (70-99); HDL Cholesterol 71 mg/dl; Iron 84 ug/dl (37-170); LDL Cholesterol, Calculated 65 mg/dl; Potassium 3.6 mmol/L (3.5-5.1); Sodium 141 mmol/L (135-145); Total Bilirubin 0.5 mg/dl (0.2-1.3); Total Cholesterol 158 mg/dl (50-199); Total Protein 6.3 g/dl (6.3-8.2); Triglyceride 110 mg/dl (10-149); Very Low Density Lipoprotein 22 mg/dl (0-30)
[2024-06-19 10:27] LABS: Percent Saturation 28 % (20-50); Total Iron Binding Capacity 292 ug/dl (265-497)
[2024-06-19 10:57] LABS: Ferritin 22.9 ng/ml (11.1-264.0)
[2024-06-19 11:11] LABS: Vitamin B12 343 pg/ml (239-931)
== END ==
LOC: REG 08:49
PROVIDERS: ATTENDING PHYSICIAN Internal Medicine Cardiovascular Disease; FAMILY PHYSICIAN Internal Medicine
DX: E61.1 Iron deficiency (principal); E78.2 Mixed hyperlipidemia; I42.9 Cardiomyopathy, unspecified; Z79.899 Other long term (current) drug therapy; R79.89 Other specified abnormal findings of blood chemistry; K21.9 Gastro-esophageal reflux disease without esophagitis
CPT/HCPCS: 36415; 80053; 80061; 82607; 82728; 83540; 83550; 85025

== ENCOUNTER → 2024-10-14 07:37 | Outpatient (REF) | payer MEDICARE, SELFPAY ==
[2024-10-14 10:02] LABS: % Basophils 0.6 % (0-2); % Eosinophils 2.4 % (0-6); % Immature Granulocytes 0.3 % (0-0.5); % Lymphocytes 21.4 % (20.5-51.1); % Monocytes 9.3 % (1.7-9.3); Absolute Eosinophils 0.1 10^3/uL (0-0.7); Absolute Lymphocytes 0.7 10^3/uL (1.2-3.4); Absolute Monocytes 0.3 10^3/uL (0.1-0.6); Absolute Neutrophils 2.2 10^3/uL (1.4-6.5); Hematocrit 37.6 % (37.0-47.0); Hemoglobin 12.2 g/dL (12.0-16.0); Mean Corp Hgb Conc. 32.4 g/dL (33.0-37.0); Mean Corpuscular Hgb 33.6 pg (27.0-31.0); Mean Corpuscular Volume 103.6 fL (81.0-99.0); Mean Platelet Volume 9.4 fL (7.4-10.4); Nucleated Red Blood Cells % 0 %; Platelet Count 154 10^3/uL (130-400); Red Blood Cell Count 3.63 10^6/uL (4.20-5.40); Red Cell Dist. Width 12.9 % (11.5-14.5); White Blood Cell Count 3.3 10^3/uL (4.8-10.8)
[2024-10-14 11:04] LABS: ALT (SGPT) 16 U/L (0-35); AST (SGOT) 30 U/L (14-36); Albumin 4.4 g/dl (3.5-5.0); Alkaline Phosphatase 96 U/L (38-126); Blood Urea Nitrogen 23 mg/dl (7-17); Calcium 9.7 mg/dl (8.4-10.2); Carbon Dioxide 28 mmol/L (22-30); Chloride 104 mmol/L (98-107); Glucose 92 mg/dl (70-99); Sodium 142 mmol/L (135-145); Total Bilirubin 0.8 mg/dl (0.2-1.3); Total Protein 6.8 g/dl (6.3-8.2); eGFR 33.31
[2024-10-14 11:12] LABS: NT-proBNP 2360 pg/ml
[2024-10-14 11:37] LABS: TSH Reflex To Free T4 3.19 uIU/ml (0.47-4.68)
== END ==
LOC: RST 07:37
PROVIDERS: ATTENDING PHYSICIAN Nurse Practitioner Family; FAMILY PHYSICIAN Internal Medicine
DX: R05.3 Chronic cough (principal); Z79.899 Other long term (current) drug therapy
CPT/HCPCS: 36415; 71046; 80053; 83880; 84443; 85025

== ENCOUNTER → 2024-10-28 08:09 | Outpatient (REF) | payer MEDICARE, SELFPAY | LOC: RST 08:09 | PROVIDERS: ATTENDING PHYSICIAN Nurse Practitioner Family; FAMILY PHYSICIAN Internal Medicine | DX: R13.10 Dysphagia, unspecified (principal) | CPT/HCPCS: 74230; 92611 ==

== ENCOUNTER 2025-03-13 11:31 | Inpatient (IN) | payer MEDICARE, SELFPAY ==
[2025-03-11 22:21] VITALS: BMI 24.4
[2025-03-11 22:23] VITALS: BP 146/84
[2025-03-11 22:38] VITALS: BP 143/61
--- NOTE | 2025-03-11 22:47 | ED.GENMED ---
History of Present Illness
General
Chief Complaint: Dizziness
Source: patient and family
Exam Limitations: none
Time Seen by Provider: 03/11/25 22:33
Nursing documentation reviewed up to this point in time: agreed with
History of Present Illness
History of Present Illness:
89-year-old female with a past medical history of hypertension, hyperlipidemia, CAD, pacemaker, CHF, aortic stenosis, atrial fibrillation, prior CVA with right-sided weakness, history of PE on Eliquis who presents to the emergency room with daughter
for evaluation of dizziness. Patient reports acute onset of symptoms this evening just prior to arrival. She says that she was sitting in a chair and she put her head back and had acute onset of dizziness which she describes as a room spinning
sensation. She says that symptoms seem to be worse when she moves her head and somewhat better when she keeps her head still. She reports some associated headache, neck pain and shoulder pain. She reports some nausea. She denies any vision
changes. She denies any speech issues. She denies any focal weakness or numbness in extremities. Denies any chest pain or palpitations. She does have a history of vertigo in the past that felt similar.
Past History
Past History
ED Past Medical History: Arrthythmia (Atrial fibrillation), CAD, Cancer (Basal cell carcinoma 2022), CHF, COPD, CVA (Right sided weakness), GERD (Fink's esophagus, hiatal hernia), HTN, Hypercholesterolemia, Valvular disease (aortic stenosis,
rheumatic heart disease) and Other (Chronic UTI, renal cyst, Vertigo, PE, Sleep apnea, Rheumatic heart disease, Diverticulitis, Hiatal hernia, IBS, Ulcers, UTI)
ED Past Surgical History: Cardiac (Pacemaker 2021), Cholecystectomy, Orthopedic (Left knee, Left shoulder surgery), Tonsilectomy and Other (Basal cell carcinoma resection 2022)
Social History
Tobacco: Non-smoker
Alcohol: None
Drug: None
Personal:
Living: with family
Employment: Retired
Family History
Family History: Other (Stroke and cancer)
Review of Systems
Review of Systems
All Other Systems: ROS reviewed and negative except as documented in HPI and ROS
Constitutional: Denies fever
Respiratory: Denies trouble breathing
Cardiac: Denies chest pain
ABD/GI: Reports nausea; Denies abdominal pain
: Denies flank pain
Musculoskeletal: Reports neck pain; Denies back pain
Neurological: Reports dizzy and headache; Denies weakness or numbness
Phy Exam
Physical Exam
Physical Exam:
General: Awake, alert, sitting in bed with head forward, hesitant to move her head due to dizziness
Head: Normocephalic, atraumatic
Eyes: Conjunctiva normal, EOMI, pupils equal round and reactive to light bilaterally; positive Trino-Hallpike towards the right
Throat: Airway intact, handling secretions
Neck: Trachea midline, no cervical spine tenderness
Lungs: Clear to auscultation bilaterally, no wheezing, rales, rhonchi
Heart: Regular rate and rhythm, systolic murmur noted
Neuro: Cranial nerves grossly intact, speech fluid, motor and sensory intact in the extremities
Skin: No rash
Extremities: Warm and well-perfused
Scores
Heart Failure Risk
Heart Failure Risk Score: Not Applicable
Heart Score for Chest Pain Patients
STEMI patient?: Not applicable
Withdrawal Assessment of Alcohol
Withdrawal Assessment Completed?: Not applicable
Course
Orders/Labs/Results
Orders:
Orders
03/11/25 22:34
Electrocardiogram (*1) Urgent
Reason for Study: Vertigo / Dizzy
EKG- Treatment ONCE
03/11/25 22:47
Interrogate Pacemaker- Treatment ONCE
Meclizine [Antivert] 25 mg PO NOW STA
03/11/25 23:17
Complete Blood Count/With Diff Urgent
Comprehensive Metabolic Panel Urgent
03/11/25 23:54
0.9% Sodium Chloride 250 ml [Nss] 250 ml IV BOLUS
03/11/25 23:59
diazePAM [Valium Injection] 2 mg IV NOW STA
03/12/25
CT Head & Neck Angio W/wo IV Urgent
Reason For Exam: dizziness, headache, neck/shoulder pain
Abnormal Lab Results
03/11/25
23:17
WBC 4.2 L 10^3/uL
(4.8-10.8)
RBC 3.32 L 10^6/uL
(4.20-5.40)
Hgb 11.2 L g/dL
(12.0-16.0)
Hct 33.9 L %
(37.0-47.0)
MCV 102.1 H fL
(81.0-99.0)
MCH 33.7 H pg
(27.0-31.0)
Absolute Lymphs (auto) 1.0 L 10^3/uL
(1.2-3.4)
Monocytes % 12.9 H %
(1.7-9.3)
BUN 25 H mg/dl
(7-17)
Creatinine 1.4 H mg/dL
(0.6-1.0)
Glucose 103 H mg/dl
(70-99)
Total Protein 6.2 L g/dl
(6.3-8.2)
03/11/25 23:17
03/11/25 23:17
Vital Signs
Initial and Last Documented VS:
Initial Vital Signs
Temp Pulse Resp BP Pulse Ox
36.6 C 74 16 146/84 94
03/11/25 22:23 03/11/25 22:23 03/11/25 22:23 03/11/25 22:23 03/11/25 22:23
Last Documented Vital Signs
Temp Pulse Resp BP Pulse Ox
36.7 C 75 23 116/55 97
03/11/25 23:20 03/12/25 00:45 03/12/25 00:45 03/12/25 01:08 03/12/25 01:08
MDM/Problems Addressed
Differential Diagnosis Includes:
Peripheral vertigo including BPPV, labyrinthitis, eustachian tube dysfunction, M�ni�re disease; central vertigo should be considered in patient based on her history and age�causes could include stroke, dissection, brain bleed
MDM/Problems Addressed:
89-year-old female presents for evaluation of dizziness which she describes as a room spinning sensation associated with headache, neck pain shoulder pain started after putting her head back in a chair. Vitals and exam as above. Will plan to send
labs including a CBC and a CMP. Check an EKG and interrogate device. Check CTA head and neck. Treat symptomatically. Reassess after the above.
Labs reviewed: CBC shows essentially stable anemia with no other clinically significant abnormalities. CMP shows stable CKD. EKG paced rhythm. After initial dose of meclizine patient still very dizzy. She could not tolerate laying flat for CT
due to severe vertiginous symptoms. Will treat with IV Valium and reassess.
Patient with only marginal improvement after IV Valium still cannot change positions due to severe dizziness. CT discussed with radiology�no acute abnormalities noted but she does have significant stenosis in multiple vessels. At this point we
will admit for continued management of severe dizziness not responsive to ER treatment. Discussed with hospitalist for admission.
Chronic conditions affecting care:
Significant cardiac history
*Radiology
Radiology exam reviewed: radiology read reviewed
*Pulse Oximetry
SaO2: 96
Oxygen Mode of Delivery: Room air
Patient hypoxic: no (96%)
*EKG
Interpreted by ED Provider?: Yes
Heart Rate: 75
Rate: normal
Rhythm: ventricular paced
*Critical Care Note
Total Time (30-74mins, 75-104mins- exclusive of procedures): Not Applicable
Data Reviewed
Review of Other/Old Records Reveals: Labs and Records
Source: patient, records and family
Patient Management
Discussion with other providers: Hospitalist (Discussed with hospitalist)
Escalation/DeEscalation of care consider admission/obs:
Admission indicated
ED Attending Note
-
Portions of this chart may have been created with voice recognition software.� Occasional wrong word or��sound alike� substitutions may have occurred due to the inherent limitations of voice recognition software.
Discharge Plan
Departure
Patient Disposition: Admit
Date of Disposition: 03/12/25
Time of Disposition: 01:50
Admit to doctor: Wicho
Presentation/result/management discussed w/ accepting MD/DO: Hospitalist
Discharge Problem:
Vertigo
Prescriptions:
No Action
Eliquis 2.5 MG tablet
2.5 mg PO BID 0RF
L.acidoph,paracasei,B.animalis 1 EACH capsule
1 ea PO DAILY@1200
cholecalciferol (vitamin D3) 50 MCG tablet,chewable
2,000 unit PO DAILY@1200
acetaminophen 500 mg Tablet
1,000 mg PO Q6H PRN (Reason: pain)
potassium chloride 10 mEq Tablet,Er Particles/Crystals
10 meq PO DAILY 30 Days Qty: 30 0RF
sacubitril-valsartan [Entresto] 24-26 mg Tablet
1 tab PO BID 30 Days Qty: 60 0RF
furosemide [Lasix] 40 mg tablet
40 mg PO DAILY Qty: 30 0RF
atorvastatin 10 mg Tablet
10 mg PO QPM 30 Days Qty: 30 0RF
amiodarone [Pacerone] 200 mg tablet
100 mg PO QPM
omeprazole 20 mg Capsule,Delayed Release(Dr/Ec)
20 mg PO QPM PRN (Reason: upset stomach)
carvedilol 3.125 mg tablet
3.125 mg PO BID
cephalexin 250 mg Capsule
250 mg PO QPM 30 Days Qty: 30 0RF
Referrals:
Moises Ventura, DO [Family Provider, Internal Medicine]
Interventions
Interventions:
*Risk Screen - Suicide Last Done: 03/11/25 22:23
*General Assessment Last Done: 03/11/25 22:52
*Neglect/Abuse Screening Last Done: 03/11/25 22:52
*ED- Fall Risk Assessment Last Done: 03/11/25 22:52
*ED COVID-19 Vaccine History Last Done: 03/11/25 22:52
ED- Neurological Assessment Last Done: 03/11/25 23:41
ED- Cardiac Assessment Last Done: 03/11/25 23:41
Discharge Date and Time
Print Language: NEPALI
[2025-03-11 23:00] VITALS: BP 107/58
[2025-03-11 23:20] VITALS: BP 107/58
[2025-03-11 23:27] LABS: Hematocrit 33.9 % (37.0-47.0); Hemoglobin 11.2 g/dL (12.0-16.0); Mean Corp Hgb Conc. 33.0 g/dL (33.0-37.0); Mean Corpuscular Volume 102.1 fL (81.0-99.0); Nucleated Red Blood Cells % 0 %; Platelet Count 149 10^3/uL (130-400); Red Cell Dist. Width 13.2 % (11.5-14.5)
[2025-03-11 23:33] VITALS: BP 110/57
[2025-03-11] MEDS: ANTIVERT 25 MG PO (23:34)
[2025-03-11 23:49] LABS: ALT (SGPT) 14 U/L (0-35); AST (SGOT) 25 U/L (14-36); Albumin 3.7 g/dl (3.5-5.0); Alkaline Phosphatase 107 U/L (38-126); Blood Urea Nitrogen 25 mg/dl (7-17); Calcium 9.4 mg/dl (8.4-10.2); Carbon Dioxide 30 mmol/L (22-30); Chloride 104 mmol/L (98-107); Estimated Creatinine Clearance 18 ml/min; Glucose 103 mg/dl (70-99); Potassium 4.2 mmol/L (3.5-5.1); Sodium 135 mmol/L (135-145); Total Protein 6.2 g/dl (6.3-8.2); eGFR 36.19
[2025-03-12] VITALS (13 sets, daily range): BP systolic 98–133; BP diastolic 50–67; PULSE 70–75; O2SAT 96; BMI 25.0
[2025-03-12] MEDS: NSS 250 IV (00:10)
[2025-03-12] MEDS: VALIUM INJECTION 2 MG IV (00:27)
--- NOTE | 2025-03-12 02:34 | HPS.HSE ---
Family Physician
-
Family Physician: Moises Ventura
Chief Complaint
-
Dizziness
History of Present Illness
Patient is an 89y F with PMH significant for CHF, COPD and prior CVA who presents to ED complaining of dizziness. Patient states that she woke with dizziness this AM. She felt the room spinning, mild L sided headache and nausea. No emesis.
She denies any fall, injury or trauma. Patient has had similar episodes in the past - admitted here last in 04/2024 with similar presentation.
She has previously responded to treatment with meclizine, vestibular PT, etc.
Patient has chronic RLE weakness but denies any new focal weakness, numbness, etc.
Patient was treated with meclizine and diazepam in the ED with minimal improvement in her symptoms.
She continues to complain of dizziness and nausea with movement and is unable to stand / ambulate.
Medical History
Past Medical History
Past Medical History: Reports Other
Additional Past Medical History:
Hypertension
HFrEF
Aortic Stenosis
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
Paroxysmal Atrial Fibrillation
Rheumatic Heart Disease
GERD
RAMAN
COPD
Vertigo
Past Surgical History: Reports Other
Additional Past Surgical History:
Cholecystectomy
Left Shoulder Arthroscopy
PPM Placement
Cataracts
Skin Cancer Excisions
Social History
Tobacco: Non-smoker
Alcohol: None
Drug: None
Family History
Family History: Not pertinent
Allergies / Home Medications
Allergies reflects when Allergies were last updated in [facility].
Home Medications with original date entered in [facility]
Allergy/Medication List:
Allergies
Allergy/AdvReac Type Severity Reaction Status Date / Time
adhesive tape Allergy skin tears Verified 03/11/25 23:44
azithromycin (From Zithromax) Allergy Severe Verified 03/11/25 23:44
Nausea
levofloxacin (From Levaquin) Allergy Severe Verified 03/11/25 23:44
Nausea
oxycodone Allergy Hallucinati Verified 03/11/25 23:44
ons
Home Medications
apixaban 2.5 mg tablet (Eliquis) 2.5 mg PO BID 10/18/17
L.acidoph,paracasei,B.animalis 10 billion cell capsule 1 ea PO DAILY@1200 Supplement 11/10/17
cholecalciferol (vitamin D3) 50 mcg (2,000 unit) chewable tablet 2,000 unit PO DAILY@1200 Supplement 12/17/19
acetaminophen 500 mg tablet 1,000 mg PO Q6H PRN pain 02/26/22
atorvastatin 10 mg tablet 10 mg PO QPM High cholesterol 30 days #30 tabs 03/09/22
furosemide 40 mg tablet (Lasix) 40 mg PO DAILY #30 tabs 03/09/22
potassium chloride 10 mEq tablet,extended release(part/cryst) 10 meq PO DAILY 30 days #30 tabs 03/09/22
sacubitril 24 mg-valsartan 26 mg tablet (Entresto) 1 tab PO BID 30 days #60 tabs 03/09/22
amiodarone 200 mg tablet (Pacerone) 100 mg PO QPM Arrhythmia 01/24/23
omeprazole 20 mg capsule,delayed release 20 mg PO QPM PRN upset stomach 05/02/24
carvedilol 3.125 mg tablet 3.125 mg PO BID Heart Disease/Condition 05/04/24
cephalexin 250 mg capsule 250 mg PO QPM Rheumatic heart disease 30 days #30 caps 05/05/24
Review of Systems
-
History Source: Patient
A 12 point ROS was completed and negative except as noted: Yes
Constitutional: Reports Fatigue; Denies Fever or Chills
Respiratory: Denies Cough or Trouble Breathing
Cardiac: Denies Chest Pain or Palpitations
Abdomen/GI: Reports Nausea; Denies Abdominal Pain or Vomiting
: Denies Dysuria or Flank Pain
Musculoskeletal: Reports Edema; Denies Joint Pain
Neurological: Reports Dizzy and Headache
Psych: Denies Depression or Anxiety
Physical Exam
Vital Signs
Vital Signs
Temp Pulse Resp BP Pulse Ox
98.1 F 75 23 116/55 97
03/11/25 23:20 03/12/25 00:45 03/12/25 00:45 03/12/25 01:08 03/12/25 01:08
Physical Exam
General: Other (89y F in no acute distress.)
HEENT: Moist mucous membranes and Other (? some horizontal nystagmus. Generally poor tracking on exam / difficulty following instructions impedes examination.)
Respiratory: Clear; No Wheezes, Rales or Rhonchi
Cardiac: S1/S2, Regular Rhythm and Murmur (II/ MADHAV)
GI: Soft, Non Tender, Non Distended and Normal Bowel Sounds
Musculoskeletal: No Clubbing, No Cyanosis and Other (2+ pitting edema b/l LEs.)
Neuro: AO x 3 and Other (Mild RLE weakness - chronic. No new focal deficits.)
Laboratory Results
-
03/11/25 23:17
03/11/25 23:17
Laboratory Results
Total Bilirubin 0.6 mg/dl (0.2-1.3) 03/11/25 23:17
AST 25 U/L (14-36) 03/11/25 23:17
ALT 14 U/L (0-35) 03/11/25 23:17
Alkaline Phosphatase 107 U/L (38-126) 03/11/25 23:17
Impression/Plan
-
A/P: Patient is an 89y F with PMH significant for CHF, COPD and prior CVA who presents to ED complaining of dizziness and nausea since this AM.
Dizziness
- Observe overnight for further evaluation and treatment.
- Seems likely this is vertigo / BPPV given prior h/o same.
- CTA done in the ED this evening with new findings / stenoses compared to prior (2021) including R M2 occlusion with distal reconstitution and severe stenosis of distal R SCRATCH BRUSHER.
- Check MR brain in AM with and without contrast.
- Continue Eliquis and add ASA 81 for now.
- Neurology evaluation for additional recommendations given CTA findings.
- Monitor on telemetry overnight.
- Monitor for any new / focal neurologic findings.
- PT / vestibular evaluation in the AM.
- Follow for improvement in symptoms.
Paroxysmal A-Fib
- Stable. Continue current med regimen including amiodarone and Eliquis.
- Monitor on tele overnight as noted above.
- PPM interrogated in the ED - unremarkable. Perhaps some recent volume increase (see below).
Chronic HFrEF
- Increased edema the past few days per patient and increased volume readings on PPM interrogation as noted above.
- Increase PO Lasix to BID for now.
- Follow for improvement in edema, daily weight, etc.
- Continue potassium supplementation and adjust dose if needed.
- Continue Entresto.
Aortic Stenosis
Mitral Stenosis
Rheumatic Heart Disease
- Patient on chronic cephalexin as an outpatient.
CKD III
- Stable. Renal function is at / near known baseline.
- Follow for changes with change in diuretic regimen, IV contrast administration, etc.
DVT Prophylaxis: On Eliquis
Code Status: Full
[2025-03-12] MEDS: TYLENOL 650 MG PO (03:42)
[2025-03-12 06:48] LABS: Hematocrit 32.9 % (37.0-47.0); Hemoglobin 10.7 g/dL (12.0-16.0); Mean Corp Hgb Conc. 32.5 g/dL (33.0-37.0); Mean Corpuscular Volume 101.2 fL (81.0-99.0); Platelet Count 147 10^3/uL (130-400); Red Cell Dist. Width 13.2 % (11.5-14.5)
[2025-03-12 07:36] LABS: Blood Urea Nitrogen 23 mg/dl (7-17); Calcium 9.1 mg/dl (8.4-10.2); Carbon Dioxide 29 mmol/L (22-30); Chloride 106 mmol/L (98-107); Estimated Creatinine Clearance 20 ml/min; Glucose 90 mg/dl (70-99); HDL Cholesterol 60 mg/dl; LDL Cholesterol, Calculated 61 mg/dl; Potassium 3.9 mmol/L (3.5-5.1); Sodium 139 mmol/L (135-145); Very Low Density Lipoprotein 20 mg/dl (0-30); eGFR 36.19
--- NOTE | 2025-03-12 08:08 | CON.NEURO4 ---
Addendum entered and electronically signed by London Pruett MD 03/12/25 09:46:
Studies reviewed.
I have personally examined the patient. I reviewed and agree with the CRYPTOLOGIC TECHNICIAN's Note.
My addenda:
Awake, alert, interactive. No acute distress.
Speech intact.
Follows 2-step requests w/o difficulty. No tremor.
Extra-ocular movements grossly intact.
Facial movements full and symmetric. Hearing reduced to normal conversational volume.
Normal UE movements bilaterally.
Neck: full ROM.
Chest: no dyspnea
Heart: no JVD
Ext: (-) Clubbing, (-) Cyanosis, (-) Edema
IMPRESSIONS/RECOMMENDATIONS:
Recurrent onset of vertigo, with headache ongoing since probably before 2007.
Most likely diagnosis is migraine with aura. Patient currently refusing MRI of brain
Provide dimenhydrinate 50 mg
Provide rizatriptan in hopes of resolving the patient's headache, aware of prior diagnosis of stroke and subarachnoid hemorrhage and history
Check carotid ultrasound due to suggested significant left internal carotid artery stenosis to confirm or refute stenosis
Recheck vitamin B12 and ferritin as both have been low in the past potentially with the ferritin deficiency increasing the risk for vertigo although this is anecdotal information
Continue anticoagulation with apixaban
Would avoid use of antiplatelet agent with apixaban due to increased risk of hemorrhage and no further protection against ischemic stroke
D/W patient / nursing
All questions answered.
Will continue to follow as outpatient.
Original Note:
Documented by User: Monet Hernandez NP 03/12/25 09:39
Consultation - Neurology 4
-
CONSULTING PHYSICIAN: London Pruett MD
REFERRING PHYSICIAN: Hospitalists/Dr. Sands
DICTATED BY: TUAN León
DATE/TIME OF REQUEST: 03/12/25
DATE/TIME OF CONSULTATION: 03/12/25
Reason for Consultation: Dizziness
History of Present Illness:
This is an 89-year-old left-handed female who has presented to the hospital on 03/11/25 with report of dizziness. Patient has previously been seen by our inpatient Neurology service for similar symptoms.
From previous evaluation by Dr. Pruett on 05/03/2024:
'Left-Handed
Has had dizziness beginning '30 years ago' [1984] started had persistent sense of falling to the left since first severe attack. No recurrent events until 1 month with spinning now associated with events since that time including visual changes.
Patient reported passing out spells leading to pacemaker insertion.
Also with difficulty with walking, felt at risk for falling
Patient had a sense of inability to stand after getting out of bed yesterday ~ 2000 hours, awoke and fell backwards upon attempting to stand. Problem as been consistent, although mildly improved.
Patient currently using walker at home since 08/2023.
8 CTs of the head since 2007.'
Patient reports that she sat up in bed yesterday morning (03/11/25) she sat up in bed and everything started spinning from right to left making her unable to stand up. She notes having a left frontal headache, nausea, and right neck ache. Her
symptoms persisted prompting her daughter to bring her to the ER for evaluation. CTA head/neck were obtained on arrival and is negative for any acute abnormalities but is suggestive of L ICA 50-60% stenosis and severe stenosis vs occlusion of the
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 Patient reports that today (03/12/25), she does not feel any improvement in her symptoms. The dizziness is worse with movement. She also notes a light-headed sensation. She denies any
overt photophobia but she is currently in a dark environment. She notes that how she currently feels is very similar to her previous episodes of dizziness. She notes that as a teenager she had severe migraines with vomiting that required her to miss
school. She denies any vision changes, ear fullness, tinnitus, speech/swallow difficulty, numbness, and new weakness. She notes only having 40% hearing bilaterally, she is due to a hearing check soon. She reports chronic left-sided vision loss since
her stroke in 2018 in addition to slight RLE weakness. She has undergone vestibular therapy in the past with no clear diagnosis. She is taking apixaban for Afib and has not missed any doses.
Past Medical History: Afib (apixaban), right occipital lobe ischemic infarct 2018, HTN, HLD, HFrEF, CKD, syncope, migraines, vertigo, COPD, RAMAN, rheumatic heart disease, aortic stenosis
Surgical History: Cholecystectomy, pacemaker, L shoulder arthroscopy, skin cancer excision, L knee surgery, tonsillectomy
Family History: Reviewed and noncontributory.
Social History: Denies tobacco, alcohol, and illicit drug use.
Allergies: Azithromycin, levofloxacin, oxycodone, adhesive tape.
Home Medications: See below.
Review of Symptoms:
Patient denies any fever, shortness of breath, GI or symptoms. Notes years of chest pressure.
�Per the HPI.�All systems are reviewed negative except above.
Physical Exam:
The patient is afebrile, abdomen is nondistended, breathing is unlabored, skin is warm and dry, trace edema BLE.
NIH Stroke Scale:
I performed the NIH stroke scale on the patient on 03/12/25 at 0830. The patient scored 2 points on the NIH stroke scale assessment, which were assigned as follows: See below.
Neurologic Examination:
The patient is drowsy. Opens eyes to voice. She is oriented x 3. She is able to follow commands and answer questions appropriately. There is no aphasia or dysarthria. On cranial nerve assessment, pupils are 3 mm bilateral, round and reactive to
light and accommodation. 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 Extraocular movements are intact. No nystagmus. Facial sensations are intact and bilaterally symmetrical, there is no facial asymmetry.
Hearing is very diminished bilaterally to normal conversation volume. Tongue palate and uvula are midline. Sternocleidomastoid strengths are full bilaterally. Motor strengths are 5-/5 bilateral upper and lower extremities on medical research [place]
scale. There is no drift. There is a low amplitude physiological tremor in distal bilateral upper extremities. Deep tendon reflexes are 2+ bilateral upper and lower extremities (absent patellars) and Babinski is absent bilaterally. There was no
extinction noted on double simultaneous stimulation. Coordination is intact by finger to nose bilaterally.
Lab Results: See below.
Neuro Imaging:
1. CTA head/neck 03/12/25: Small old right occipital lobe infarct. Likely nonhemodynamically significant stenosis of approximately 50-60% of the proximal left internal carotid artery. No findings to suggest internal carotid artery dissection
bilaterally. Dominant right vertebral artery with overall diminutive vertebral arteries again seen bilaterally. Findings suggesting marked stenosis or possible occlusion of short segment of mid to distal right M2 branch with reconstitution distally.
Relative diminutive basilar artery, likely at least in part related to bilateral picking tech. Complex appearance of the posterior intracranial arterial circulation, as detailed above. Nodular right lobe of thyroid. 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
of thyroid.
Differentials for the patient's presentation include:
1. Dizziness; etiology is likely migraine with aura given history of severe migraines and recurrent similar episodes associated with head discomfort and once episode of visual disturbance.
2. CTA head/neck is suggestive of L ICA 50-60% stenosis and distal R M2 severe stenosis, unlikely to be related to current symptoms.
3. Right occipital ischemic stroke 2018.
4. History of vitamin B12 deficiency and low ferritin level.
Patient has the following risk factors for their symptoms: Hx similar events, hx migraines
Recommendations:
-Provide rizatriptan 10mg x1 now and dimenhydrinate 50mg x1 now for symptom relief.
-MRI brain w/ and w/o contrast, MRA head/neck pending.
-Goal normotension.
-PT/OT evaluations.
-Continue home apixaban.
-Checking blood work for metabolic abnormalities.
Discussed patient care with: Dr. Pruett, the patient
Vital Signs and Labs
-
Vital Signs and Labs:
Vital Signs
Temp Pulse Resp BP Pulse Ox
97.8 F 70 17 108/56 98
03/12/25 07:23 03/12/25 07:23 03/12/25 07:23 03/12/25 07:23 03/12/25 07:23
Lab Results
03/12/25 06:27
03/12/25 06:27
Sodium 139 mmol/L (135-145) 03/12/25 06:27
Potassium 3.9 mmol/L (3.5-5.1) 03/12/25 06:27
BUN 23 mg/dl (7-17) H 03/12/25 06:27
Glucose 90 mg/dl (70-99) 03/12/25 06:27
Calcium 9.1 mg/dl (8.4-10.2) 03/12/25 06:27
LDL Cholesterol, Calc 61 mg/dl 03/12/25 06:27
Medications
-
Medications:
Generic Name Dose Route Start Last Admin
Trade Name Freq PRN Reason Stop Dose Admin
Acetaminophen 650 mg 03/12/25 03:32 03/12/25 03:42
Acetaminophen 325 Mg Tablet PO 04/09/25 03:31 650 mg
Q4HPRN PRN Administration
Mild Pain / Temp > 101
Amiodarone HCl 100 mg 03/12/25 18:00
Amiodarone 100 Mg Tablet PO 04/09/25 17:59
QPM LORNA
Apixaban 2.5 mg 03/12/25 08:00
Apixaban (Eliquis) 2.5 Mg Tablet PO 04/09/25 07:59
BID LORNA
Aspirin 81 mg 03/12/25 08:00
Aspirin 81 Mg Chewable Tablet PO 04/09/25 07:59
DAILY LORNA
Atorvastatin Calcium 10 mg 03/12/25 18:00
Atorvastatin (Lipitor) 10 Mg Tablet PO 04/09/25 17:59
QPM LORNA
Carvedilol 3.125 mg 03/12/25 08:00
Carvedilol 3.125 Mg Tablet PO 04/09/25 07:59
BID LORNA
Cephalexin HCl 250 mg 03/12/25 18:00
Cephalexin 250 Mg Capsule PO
QPM LORNA
Furosemide 40 mg 03/12/25 08:00
Furosemide 40 Mg Tablet PO 04/09/25 07:59
BID AT 0800,1600 LORNA
Potassium Chloride 10 meq 03/12/25 08:00
Potassium Chloride 10 Meq Extended Release Tablet PO 04/09/25 07:59
DAILY LORNA
Sacubitril/Valsartan 1 tab 03/12/25 08:00
Sacubitril 24 Mg/Valsartan 26 Mg (Entresto) Tab PO 04/09/25 07:59
BID LORNA
NIH Stroke Score
Subsequent NIH Scale
Date of Subsequent NIH Scale: 03/12/25
Time of Subsequent NIH Scale: 08:30
NIH Stroke Score
Level of Consciousness: 0 - Alert
LOC Questions: 0-Answers both correctly
LOC Commands: 0-Performs both correctly
Best Horizontal Gaze: 0-Normal
Visual Garcia: 2=Full hemianopia
Facial Palsy: 0=Normal, symmetrical
Motor - Right Arm: 0=No drift 10 seconds
Motor - Left Arm: 0=No drift 10 seconds
Motor - Right Le-No drift 5 seconds
Motor - Left Le-No drift 5 seconds
Limb Ataxia: 0-Absent
Sensation: 0-Normal
Best Language: 0-No aphasia
Dysarthria: 0-Normal
Extinction and Inattention: 0-No abnormality
NIH Total Score:: 2

Documented by User: London Pruett MD 03/12/25 09:42
NIH Stroke Score
NIH Stroke Score
NIH Total Score:: 2
[2025-03-12 08:39] LABS: Glycohemoglobin (HgbA1c) 5.5 % (4.0-5.6)
[2025-03-12] MEDS: KCL 10 MEQ PO (09:11)
[2025-03-12] MEDS: ELIQUIS 2.5 MG PO ×2 (09:11→20:24)
[2025-03-12] MEDS: LASIX 40 MG PO ×2 (09:12→15:59)
[2025-03-12] MEDS: NSS (PRESERVATIVE FREE) 10 ML INJ (09:17)
--- NOTE | 2025-03-12 09:29 | W.PN.HOSP.TC ---
Today's Communication/Plan
-
see A/P
Assessment / Plan
Assessment / Plan
HPI: 89 yo F with PMH significant for CHF, COPD and prior CVA who presented to ED complaining of dizziness upon waking in the morning.
She felt the room spinning, with mild L sided headache and nausea (no emesis). She denies any fall, injury or trauma. Patient has had similar episodes in the past - admitted here last in 04/2024 with similar presentation.
She has previously responded to treatment with meclizine, vestibular PT, etc.
Patient has chronic RLE weakness but denies any new focal weakness, numbness, etc.
Patient was treated with meclizine and diazepam in the ED with minimal improvement in her symptoms.
She continues to complain of dizziness and nausea with movement and is unable to stand / ambulate.
A/P:
# Dizziness, vertigo/BPPV given prior h/o same vs migraine with aura
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
Pt declined MRI brain/MRA head and neck
Daughter would like another CT in 24-48 hours for comparison to r/o stroke, ordered
No indication for baby ASA per neuro, stopped ASA
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
Neurology recc Dimenhydrinate and rizatriptan for suspect migraine with aura
PT OT eval and for vestibular therapy
# Paroxysmal A-Fib
Stable. Continue current med regimen including amiodarone and Eliquis.
Monitor on tele
PPM interrogated in the ED - unremarkable.
# Chronic HFrEF
Increased edema the past few days per patient and increased volume readings on PPM interrogation
Increased PO Lasix to BID for now.
Follow for improvement in edema, daily weight, etc.
Continue potassium supplementation and adjust dose if needed.
Continue Entresto with hold parameter
# Aortic Stenosis
# Mitral Stenosis
# Rheumatic Heart Disease
Patient on chronic cephalexin as an outpatient.
# CKD III
Stable. Renal function is at / near known baseline.
Follow for changes with change in diuretic regimen, IV contrast administration, etc.
DVT Prophylaxis: On Eliquis
Code Status: Full
Extensive discussion with Neuro Dr Pruett
DW daughter at bedside
total time 51 min
Anticipated Discharge: Within 24 hours
Subjective/Interval History
-
Date of Service: March 12, 2025
Objective Data
-
Labs:
Laboratory Results
03/11/25 03/12/25
23:17 06:27
WBC 4.2 L 4.2 L
Hgb 11.2 L 10.7 L
Hct 33.9 L 32.9 L
Plt Count 149 147
Sodium 135 139
Potassium 4.2 3.9
Chloride 104 106
Carbon Dioxide 30 29
BUN 25 H 23 H
Creatinine 1.4 H 1.4 H
Glucose 103 H 90
Calcium 9.4 9.1
Total Bilirubin 0.6
AST 25
ALT 14
Alkaline Phosphatase 107
Vital Signs:
Vital Signs
Temp Pulse Resp BP Pulse Ox
36.6 C 70 17 108/56 98
03/12/25 07:23 03/12/25 09:12 03/12/25 07:23 03/12/25 09:12 03/12/25 07:23
I&O
03/11/25 03/12/25 03/13/25
06:59 06:59 06:59
Intake Total 240 / 240
Balance 240 / 240
Review of Systems
-
History Source: Patient
Neuro: Reports Dizzy (slightly improved )
Physical Exam
-
General: Well Developed, Well Nourished, No Apparent Distress, Comfortable, Conversant and Other (Frail)
HEENT: Normocephalic, Atraumatic and Moist Mucous Membranes
Respiratory: Clear to Auscultation and Non Labored Respirations; Negative Accessory Resp Muscle Use
Cardiac: Regular Rhythm, S1/S2 and Murmur
GI: Soft, Nontender, Nondistended and Normal Bowel Sounds
Musculoskeletal: No Clubbing, No Cyanosis and No Edema
Skin: Warm and Dry; Negative Rash
Neuro: Awake, Alert and Oriented
Psych: Calm and Intact Judgement/Insight
Data Reviewed
-
CT Scan: Report Reviewed by me, Discussed with Patient and Discussed with Family
Labs: Labs Reviewed by me
[2025-03-12] MEDS: ENTRESTO 24 MG/26 MG PO ×2 (09:39→22:05)
[2025-03-12] MEDS: COREG 3.125 MG PO ×2 (10:07→20:25)
[2025-03-12] MEDS: dimenhyDRINATE 50 MG IV (10:08)
[2025-03-12] MEDS: MAXALT MLT (ORALLY DISINTEGRATING) 10 MG PO (10:10)
--- NOTE | 2025-03-12 13:34 | CM ---
Patient seen at bedside
IA completed
dx: dizziness
OBS status-COTA Form explained & signed. In chart
Patient lives with daughter in a 2 story home, resides on 1st floor with bed/bathroom, 3 [address]
PLOF: independent with walker
DME: Walker, cane, wheelchair
has had [facility] in past, denies rehab
PT/OT eval - rec outpatient vs. SNF
PCP: Moises Bai
Pharmacy: [address], [place]
PLAN: outpatient vs. snf when medically stable
[2025-03-12] MEDS: PACERONE 100 MG PO (17:14)
[2025-03-12] MEDS: LIPITOR 10 MG PO (17:14)
[2025-03-12] MEDS: KEFLEX 250 MG PO (17:14)
[2025-03-12 18:43] LABS: Ferritin 18.4 ng/ml (11.1-264.0)
[2025-03-12 19:15] LABS: Folate 10.7 ng/ml (2.76-20); Vitamin B12 241 pg/ml (239-931)
[2025-03-13] VITALS (7 sets, daily range): BP systolic 96–131; BP diastolic 48–63; PULSE 78; BMI 23.3
[2025-03-13] MEDS: ELIQUIS 2.5 MG PO ×2 (08:15→20:56)
[2025-03-13] MEDS: KCL 10 MEQ PO (08:15)
[2025-03-13] MEDS: LASIX 40 MG PO ×2 (08:25→16:28)
[2025-03-13] MEDS: COREG 3.125 MG PO ×2 (08:26→20:55)
[2025-03-13] MEDS: ENTRESTO 24 MG/26 MG PO ×2 (08:26→20:51)
[2025-03-13 08:55] LABS: Hematocrit 35.1 % (37.0-47.0); Hemoglobin 11.4 g/dL (12.0-16.0); Mean Corp Hgb Conc. 32.5 g/dL (33.0-37.0); Mean Corpuscular Volume 101.7 fL (81.0-99.0); Platelet Count 158 10^3/uL (130-400); Red Cell Dist. Width 13.3 % (11.5-14.5)
[2025-03-13 09:12] LABS: Blood Urea Nitrogen 21 mg/dl (7-17); Calcium 9.4 mg/dl (8.4-10.2); Carbon Dioxide 32 mmol/L (22-30); Chloride 105 mmol/L (98-107); Estimated Creatinine Clearance 17 ml/min; Glucose 87 mg/dl (70-99); Potassium 3.8 mmol/L (3.5-5.1); Sodium 142 mmol/L (135-145); eGFR 33.31
--- NOTE | 2025-03-13 11:07 | W.PN.HOSP.TC ---
Today's Communication/Plan
-
Encourage more movement and usual po intake
Assessment / Plan
Assessment / Plan
Initial presentation:
89 yo F with PMH significant for CHF, COPD and prior CVA who presented to ED complaining of dizziness upon waking in the morning.
She felt the room spinning, with mild L sided headache and nausea (no emesis). She denies any fall, injury or trauma. Patient has had similar episodes in the past - admitted here last in 04/2024 with similar presentation. She has previously
responded to treatment with meclizine, vestibular PT, etc.
Patient has chronic RLE weakness but denies any new focal weakness, numbness, etc.
Patient was treated with meclizine and diazepam in the ED with minimal improvement in her symptoms.
She continues to complain of dizziness and nausea with movement and is unable to stand / ambulate.
Diagnosis present before admit
Back issues
Lumbar foraminal stenosis
Lumbar spondylosis
Lumbar radiculopathy
Heart issues
Chronic combined systolic and diastolic CHF (congestive heart failure)
Atherosclerotic heart disease of [place] coronary artery without angina pectoris
Essential (primary) hypertension
Paroxysmal atrial fibrillation
Persistent atrial fibrillation
Cardiomyopathy EF 45% on echo
Moderate aortic regurgitation
Status cardiac pacemaker
Moderate to severe mitral regurgitation
Moderate aortic stenosis by prior echocardiogram
Other issues
Atrophy of kidney
Pulmonary hypertension
Pharyngeal dysphagia
Secondary hypercoagulable state
Mixed hyperlipidemia
Atypical syncope
Chronic kidney disease, stage 3a
GERD without esophagitis
Hospital course by problem, with A/P:
1. Dizziness, vertigo/BPPV given prior h/o same vs migraine with aura
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
Pt declined MRI brain/MRA head and neck (she has pacemaker)
Plan is for another CT in 24-48 hours for comparison to r/o stroke, ordered
No indication for baby ASA per neuro, stopped ASA
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
Neurology recc Dimenhydrinate and rizatriptan for suspect migraine with aura
PT OT eval and for vestibular therapy
Issue complicated by low BP, which may be from meds or another issue
This needs to be worked up and followed to see progression
Encourage PO intake today
2. Paroxysmal A-Fib
Stable. Continue current med regimen including amiodarone and Eliquis.
Monitor on tele
PPM interrogated in the ED - unremarkable.
3. Chronic HFrEF
Increased edema the past few days per patient and increased volume readings on PPM interrogation
Increased PO Lasix to BID for now.
Follow for improvement in edema, daily weight, etc.
Continue potassium supplementation and adjust dose if needed.
Continue Entresto with hold parameter
4. Heart issues:
Aortic Stenosis
Mitral Stenosis
Rheumatic Heart Disease
Patient on chronic cephalexin as an outpatient.
5. CKD III
Stable. Renal function is at / near known baseline.
Follow for changes with change in diuretic regimen, IV contrast administration, etc.
DVT Prophylaxis: On Eliquis
Code Status: Full
Given medical complexity and new issue with low BP, I feel she meets inpatient status and will change admit status.
total time 51 min
Anticipated Discharge: 24 - 48 hours
Subjective/Interval History
-
Date of Service: March 13, 2025
starting to feel better
Objective Data
-
Labs:
Laboratory Results
03/13/25
08:09
WBC 4.4 L
Hgb 11.4 L
Hct 35.1 L
Plt Count 158
Sodium 142
Potassium 3.8
Chloride 105
Carbon Dioxide 32 H
BUN 21 H
Creatinine 1.5 H
Glucose 87
Calcium 9.4
Vital Signs:
Vital Signs
Temp Pulse Resp BP Pulse Ox
98.7 F 74 14 108/52 99
03/13/25 07:39 03/13/25 08:26 03/13/25 07:39 03/13/25 08:26 03/13/25 09:20
I&O
03/12/25 03/13/25 03/14/25
06:59 06:59 06:59
Intake Total 240 / 240 360 / 360
Output Total 500 / 500
Balance 240 / 240 -140 / -140
Review of Systems
-
History Source: Patient
All other systems: Reviewed and negative
Physical Exam
-
General: Well Developed, Well Nourished, No Apparent Distress, Comfortable and Conversant
HEENT: Normocephalic and Moist Mucous Membranes
Respiratory: Clear to Auscultation
Cardiac: Regular Rhythm and S1/S2
GI: Soft, Nontender and Nondistended
Musculoskeletal: No Clubbing and No Cyanosis
Skin: Warm and Dry
Neuro: Awake, Alert and Oriented
Psych: Calm
Data Reviewed
-
Labs: Labs Reviewed by me
--- NOTE | 2025-03-13 14:12 | CM ---
Spoke with patient in room. Pt changed to inpatient . IMM copy given explained IMM signed on chart. Pt states understanding .
Reviewed PT with patient . Explained [facility] has a vestibular out pt clinic if interested .
She said she will speak with dgt about dc planning.
PLAN SNF VS out pt therapy
[2025-03-13] MEDS: TYLENOL 650 MG PO ×2 (14:37→22:10)
[2025-03-13] MEDS: PACERONE 100 MG PO (17:28)
[2025-03-13] MEDS: LIPITOR 10 MG PO (17:28)
[2025-03-13] MEDS: KEFLEX 250 MG PO (17:28)
[2025-03-14 03:26] VITALS: BP 110/51
[2025-03-14 05:32] LABS: Hematocrit 34.4 % (37.0-47.0); Hemoglobin 11.0 g/dL (12.0-16.0); Mean Corp Hgb Conc. 32.0 g/dL (33.0-37.0); Mean Corpuscular Volume 102.1 fL (81.0-99.0); Platelet Count 150 10^3/uL (130-400); Red Cell Dist. Width 13.1 % (11.5-14.5)
[2025-03-14 05:50] VITALS: BMI 23.0
[2025-03-14 06:31] LABS: Blood Urea Nitrogen 23 mg/dl (7-17); Calcium 9.1 mg/dl (8.4-10.2); Carbon Dioxide 34 mmol/L (22-30); Chloride 105 mmol/L (98-107); Estimated Creatinine Clearance 15 ml/min; Glucose 85 mg/dl (70-99); Potassium 3.7 mmol/L (3.5-5.1); Sodium 141 mmol/L (135-145); eGFR 28.67
[2025-03-14 07:00] VITALS: BP 126/55
[2025-03-14] MEDS: KCL 10 MEQ PO (08:03)
[2025-03-14] MEDS: COREG 3.125 MG PO (08:03)
[2025-03-14] MEDS: ELIQUIS 2.5 MG PO (08:04)
[2025-03-14] MEDS: ENTRESTO 24 MG/26 MG 1 TAB PO (08:04)
[2025-03-14] MEDS: LASIX 40 MG PO (08:04)
[2025-03-14 11:00] VITALS: BP 100/55
--- NOTE | 2025-03-14 12:27 | W.DCSUMMARY ---
Discharge Summary
Discharge Data
Date of Admission: 03/13/25
Date of Discharge: 03/14/25
Total time spent discharging patient (in min): 50
-
Pending Results: No
Hospital Course
Initial presentation:
89 yo F with PMH significant for CHF, COPD and prior CVA who presented to ED complaining of dizziness upon waking in the morning.
She felt the room spinning, with mild L sided headache and nausea (no emesis). She denies any fall, injury or trauma. Patient has had similar episodes in the past - admitted here last in 04/2024 with similar presentation. She has previously
responded to treatment with meclizine, vestibular PT, etc. Patient has chronic RLE weakness but denies any new focal weakness, numbness, etc. Patient was treated with meclizine and diazepam in the ED with minimal improvement in her symptoms. She
continued to complain of dizziness and nausea with movement and was unable to stand / ambulate.
Diagnosis present before admit
Back issues
Lumbar foraminal stenosis
Lumbar spondylosis
Lumbar radiculopathy
Heart issues
Chronic combined systolic and diastolic CHF (congestive heart failure)
Atherosclerotic heart disease of [place] coronary artery without angina pectoris
Essential (primary) hypertension
Paroxysmal atrial fibrillation
Persistent atrial fibrillation
Cardiomyopathy EF 45% on echo
Moderate aortic regurgitation
Status cardiac pacemaker
Moderate to severe mitral regurgitation
Moderate aortic stenosis by prior echocardiogram
Other issues
Atrophy of kidney
Pulmonary hypertension
Pharyngeal dysphagia
Secondary hypercoagulable state
Mixed hyperlipidemia
Atypical syncope
Chronic kidney disease, stage 3a
GERD without esophagitis
Hospital course by problem, with A/P:
1. Dizziness, vertigo/BPPV given prior h/o of same vs migraine with aura - improving
Noted CTA in the ED with new findings of stenoses compared to prior (2021) including R M2 occlusion with distal reconstitution and severe stenosis of distal R ELEMENT SETTER.
Pt declined MRI brain/MRA head and neck (she has pacemaker)
Plan was for another CT in 24-48 hours for comparison to r/o stroke. This was done.
No acute abnormality showed on repeat CT - no stroke seen.
No indication for baby ASA per neuro, stopped ASA
Continue BREAKFAST HOSTESS Eliquis, Ok with neuro
Neurology rec. Dimenhydrinate and rizatriptan for suspected this was migraine with aura
PT OT eval and for vestibular therapy
The dizziness Issue was complicated by low BP, which may be from meds or another issue. This is better today
Encourage PO intake.
Follow up with outpatient cardiology and neurology
2. Paroxysmal A-Fib - Stable.
Continue current med regimen including amiodarone and Eliquis.
PPM interrogated in the ED - unremarkable.
3. Chronic HFrEF
Patient noted Increased edema the past few days per patient and increased volume readings on PPM interrogation
In the hospital, we Increased PO Lasix to BID
Resume usual dose at discharge
Continue potassium supplementation and adjust dose if needed as outpatient
Continue Entresto as previously prescribed
4. Heart issues:
Aortic Stenosis
Mitral Stenosis
Rheumatic Heart Disease
Patient on chronic cephalexin as an outpatient.
Resume all usual outpatient care for above
5. CKD III - Stable.
Renal function is at / near known baseline.
Follow for changes with change in diuretic regimen as outpatient
DVT Prophylaxis while in hospital: On Eliquis
Code Status while in hospital: Full
Given medical complexity and issue with low BP, I felt that she met inpatient status.
Exam on day of discharge:
General: Well Developed, Well Nourished, No Apparent Distress, Comfortable and Conversant
HEENT: Normocephalic and Moist Mucous Membranes
Respiratory: Clear to Auscultation
Cardiac: Regular Rhythm and S1/S2
GI: Soft, Nontender and Nondistended
Musculoskeletal: No Clubbing and No Cyanosis
Skin: Warm and Dry
Neuro: Awake, Alert and Oriented
Psych: Calm
Discharge Plan
-
Patient Disposition: Home (Routine Discharge)
Discharge Diagnosis/Procedures: dizziness and low BP
Diet: As tolerated
Activity: No restrictions
Driving Restrictions: As prior to admission
Bathing Restrictions: None
Referrals:
Moises Ventura, [Family Provider, Internal Medicine]
Prescriptions:
Continued
Eliquis 2.5 MG tablet
2.5 mg PO BID 0RF
L.acidoph,paracasei,B.animalis 1 EACH capsule
1 ea PO DAILY@1200
cholecalciferol (vitamin D3) 50 MCG tablet,chewable
2,000 unit PO DAILY@1200
acetaminophen 500 mg Tablet
1,000 mg PO Q6H PRN (Reason: pain)
potassium chloride 10 mEq Tablet,Er Particles/Crystals
10 meq PO DAILY 30 Days Qty: 30 0RF
sacubitril-valsartan [Entresto] 24-26 mg Tablet
1 tab PO BID 30 Days Qty: 60 0RF
furosemide [Lasix] 40 mg tablet
40 mg PO DAILY Qty: 30 0RF
atorvastatin 10 mg Tablet
10 mg PO QPM 30 Days Qty: 30 0RF
amiodarone [Pacerone] 200 mg tablet
100 mg PO QPM
omeprazole 20 mg Capsule,Delayed Release(Dr/Ec)
20 mg PO QPM PRN (Reason: upset stomach)
carvedilol 3.125 mg tablet
3.125 mg PO BID
cephalexin 250 mg Capsule
250 mg PO QPM 30 Days Qty: 30 0RF
Discharge Orders:
Discharge Patient (As Directed); Ordered 03/14/25
Ordered By: Juan Ramon Corbett
Discharge Date and Time
Print Language: ROMANSH
[2025-03-14 12:52] VITALS: BP 126/64
--- NOTE | 2025-03-14 12:54 | CM ---
MD entered order for discharge.
OT saw patient from [facility] . Pt has no more dizziness.
Spoke with pt and dgt in room.
Offered VN pt declined need.
Dgt will drive her home.
PLAN Home no needs
== END 2025-03-14 14:36 | disposition home or self-care (01) | DRG 103 ==
LOC: 3 WEST ACU 11:31
PROVIDERS: Internal Medicine; ADMITTING PHYSICIAN Hospitalist; ATTENDING PHYSICIAN Internal Medicine; CONSULT PHYSICIAN Psychiatry & Neurology Neurology; EMERGENCY PHYSICIAN Emergency Medicine; FAMILY PHYSICIAN Internal Medicine
DX: G43.109 Migraine with aura, not intractable, without status migrainosus (principal); I13.0 Hypertensive heart and chronic kidney disease with heart failure and stage 1 through stage 4 chronic kidney disease, or unspecified chronic kidney disease; I50.42 Chronic combined systolic (congestive) and diastolic (congestive) heart failure; I48.19 Other persistent atrial fibrillation; D68.69 Other thrombophilia; I42.9 Cardiomyopathy, unspecified; H81.10 Benign paroxysmal vertigo, unspecified ear; I25.10 Atherosclerotic heart disease of native coronary artery without angina pectoris; K21.9 Gastro-esophageal reflux disease without esophagitis; J44.9 Chronic obstructive pulmonary disease, unspecified; N18.31 Chronic kidney disease, stage 3a; I08.0 Rheumatic disorders of both mitral and aortic valves; M47.26 Other spondylosis with radiculopathy, lumbar region; M48.061 Spinal stenosis, lumbar region without neurogenic claudication; E78.2 Mixed hyperlipidemia; G47.33 Obstructive sleep apnea (adult) (pediatric); I27.20 Pulmonary hypertension, unspecified; I69.312 Visuospatial deficit and spatial neglect following cerebral infarction; Z86.711 Personal history of pulmonary embolism; Z79.01 Long term (current) use of anticoagulants; Z79.899 Other long term (current) drug therapy; I69.341 Monoplegia of lower limb following cerebral infarction affecting right dominant side; Z95.0 Presence of cardiac pacemaker; Z88.1 Allergy status to other antibiotic agents; Z88.5 Allergy status to narcotic agent
CPT/HCPCS: 70450; 70496; 70498; 80048; 80053; 80061; 82607; 82728; 82746; 83036; 85025; 85027; 93005; 93288; 93880; 96361; 96374; 97116; 97163; 97167; 97530; 99285; J1240; Q9967

== ENCOUNTER → 2025-03-30 07:08 | Outpatient (REF) | payer MEDICARE, SELFPAY ==
[2025-03-30 08:49] LABS: Blood Urea Nitrogen 21 mg/dl (7-17); Calcium 9.2 mg/dl (8.4-10.2); Carbon Dioxide 30 mmol/L (22-30); Chloride 105 mmol/L (98-107); Glucose 99 mg/dl (70-99); Potassium 3.9 mmol/L (3.5-5.1); Sodium 139 mmol/L (135-145); eGFR 30.83
== END ==
LOC: REG 07:08
PROVIDERS: ATTENDING PHYSICIAN Internal Medicine
DX: N18.32 Chronic kidney disease, stage 3b (principal)
CPT/HCPCS: 36415; 80048

== ENCOUNTER → 2025-04-07 10:18 | Outpatient (REF) | payer MEDICARE, SELFPAY | LOC: RCS 10:18 | PROVIDERS: ATTENDING PHYSICIAN Physician Assistant; FAMILY PHYSICIAN Internal Medicine | DX: I42.9 Cardiomyopathy, unspecified (principal); I35.0 Nonrheumatic aortic (valve) stenosis; I34.0 Nonrheumatic mitral (valve) insufficiency | CPT/HCPCS: 93306 ==

== ENCOUNTER → 2025-06-22 09:08 | Outpatient (REF) | payer MEDICARE, SELFPAY ==
[2025-06-22 10:46] LABS: ALT (SGPT) 16 U/L (0-35); AST (SGOT) 28 U/L (14-36); Albumin 4.3 g/dl (3.5-5.0); Alkaline Phosphatase 108 U/L (38-126); Blood Urea Nitrogen 22 mg/dl (7-17); Calcium 9.6 mg/dl (8.4-10.2); Carbon Dioxide 30 mmol/L (22-30); Chloride 101 mmol/L (98-107); Glucose 88 mg/dl (70-99); HDL Cholesterol 77 mg/dl; LDL Cholesterol, Calculated 68 mg/dl; Potassium 4.1 mmol/L (3.5-5.1); Sodium 138 mmol/L (135-145); Total Protein 7.0 g/dl (6.3-8.2); Very Low Density Lipoprotein 24 mg/dl (0-30); eGFR 33.31
[2025-06-22 10:50] LABS: Hematocrit 35.3 % (37.0-47.0); Hemoglobin 11.5 g/dL (12.0-16.0); Mean Corp Hgb Conc. 32.6 g/dL (33.0-37.0); Mean Corpuscular Volume 99.4 fL (81.0-99.0); Nucleated Red Blood Cells % 0 %; Platelet Count 174 10^3/uL (130-400); Red Cell Dist. Width 12.6 % (11.5-14.5)
[2025-06-22 10:56] LABS: Total Iron Binding Capacity 357 ug/dl (265-497)
[2025-06-22 11:21] LABS: Ferritin 14.8 ng/ml (11.1-264.0)
== END ==
LOC: REG 09:08
PROVIDERS: ATTENDING PHYSICIAN Internal Medicine Cardiovascular Disease; FAMILY PHYSICIAN Internal Medicine
DX: I25.10 Atherosclerotic heart disease of native coronary artery without angina pectoris (principal); I50.42 Chronic combined systolic (congestive) and diastolic (congestive) heart failure; E61.1 Iron deficiency; E78.2 Mixed hyperlipidemia; I10 Essential (primary) hypertension; I35.0 Nonrheumatic aortic (valve) stenosis
CPT/HCPCS: 36415; 80053; 80061; 82728; 83550; 85025